=== PATIENT | male | born 1960 | race Caucasian/White ===

== ENCOUNTER 2017-06-23 16:39 | Emergency (ER) | payer BC, OTHER ==
[2017-06-23 17:24] LABS: BILIRUBIN,URINE SMALL (NEG); CLARITY,URINE CLEAR; COLOR,URINE AMBER; GLUCOSE,URINE NEGATIVE (NEG); NITRITE,URINE NEGATIVE (NEG); PROTEIN,URINE >=300 mg/dL (NEG-TRACE); UROBILINOGEN,URINE 0.2 mg/dL (0.2 mg/dL)
[2017-06-23 17:28] LABS: ADD MAN DIFF? NO
[2017-06-23 17:32] LABS: BASO # 0.1 x10^3/uL (0.0-0.2); BASO % 1 % (0-3); EOS % 0 % (0-3); HEMATOCRIT 40.9 % (39.0-53.0); HEMOGLOBIN 14.3 g/dL (13.0-17.5); LYMPH # 1.4 x10^3/uL (1.0-4.8); LYMPH % 14 % (24-48); MEAN CORPUSCULAR HEMOGLOBIN 32 pg (25-35); MEAN CORPUSCULAR HGB CONC 35 g/dL (31-37); MEAN CORPUSCULAR VOLUME 91 fL (79-100); MONO # 0.8 x10^3/uL (0.0-1.1); MONO % 8 % (0-9); NEUT # 7.9 x10^3uL (1.8-7.7); NEUT % 78 % (31-73); PLATELET COUNT 258 x10^3/uL (140-400); RED BLOOD COUNT 4.49 x10^6/uL (4.30-5.70); RED CELL DISTRIBUTION WIDTH 13.9 % (11.5-14.5); WHITE BLOOD COUNT 10.2 x10^3/uL (4.0-11.0)
[2017-06-23 17:39] LABS: BACTERIA,URINE 0 /HPF (0-FEW); HYALINE CASTS, URINE MODERATE /HPF; RBC,URINE 0 /HPF (0-2); WBC,URINE 0 /HPF (0-4)
[2017-06-23] MEDS: fentaNYL PF VIAL 100 MCG/2 ML VIAL IV (17:39)
[2017-06-23] MEDS: IV NORMAL SALINE 1000ML BAG 1,000 ML IV (17:40)
[2017-06-23] MEDS: ONDANSETRON PF 4 MG/2 ML VIAL. IV (17:40)
[2017-06-23 17:50] LABS: ANION GAP 13 (6-14); BLOOD UREA NITROGEN 24 mg/dL (8-26); BUN/CREATININE RATIO 20 (6-20); CALCIUM 8.9 mg/dL (8.5-10.1); CARBON DIOXIDE 23 mmol/L (21-32); CHLORIDE 103 mmol/L (98-107); CREATININE 1.2 mg/dL (0.7-1.3); GFR 62.9; GLUCOSE 178 mg/dL (70-99); POTASSIUM 3.9 mmol/L (3.5-5.1); SODIUM 139 mmol/L (136-145)
[2017-06-23 17:58] LABS: TROPONINI < 0.017 ng/mL (0.000-0.055)
[2017-06-23 17:59] LABS: ALBUMIN 3.8 g/dL (3.4-5.0); ALBUMIN/GLOBULIN RATIO 1.2 (1.0-1.7); ALK PHOS 70 U/L (46-116); ALT (SGPT) 33 U/L (16-63); AST (SGOT) 22 U/L (15-37); LIPASE 185 U/L (73-393); TOTAL BILIRUBIN 0.5 mg/dL (0.2-1.0); TOTAL PROTEIN 7.1 g/dL (6.4-8.2)
[2017-06-23] MEDS ORDERED: CONTRAST GIVEN MC (18:45)
[2017-06-23] MEDS: IOHEXOL 300 MG/ML 100ML VIAL. IV (19:11)
== END 2017-06-23 19:38 | disposition home or self-care (01) ==
LOC: ER 16:39
DX: K80.20 Calculus of gallbladder without cholecystitis without obstruction (principal); K29.00 Acute gastritis without bleeding; E10.9 Type 1 diabetes mellitus without complications; Z79.4 Long term (current) use of insulin
CPT/HCPCS: 36415; 74177; 80053; 81001; 83690; 84484; 85025; 93005; 96361; 96374; 96375; 99285-25; J2405; J3010; J7030; Q9967

== ENCOUNTER 2017-07-06 07:26 | Day surgery (SDC) | payer BC ==
[~2017-07-06 07:26] MED LIST: GLUCAGON,HUMAN RECOMBINANT 1 MG/ML VIAL.; LIDOCAINE 1% PF 2 ML VIAL. ID; MORPHINE SULFATE 2 MG/ML DISP.SYRIN. IV; ONDANSETRON PF 4 MG/2 ML VIAL. IV; SURGICEL HEMOSTAT 4X8 EACH.; fentaNYL PF VIAL 100 MCG/2 ML VIAL IV
[2017-07-06 07:56] LABS: POC GLUCOSE 114 mg/dL (70-99)
[2017-07-06] MEDS ORDERED: SEVOFLURANE 61 TO 120 MINUTES. IH (07:58)
[2017-07-06] MEDS: IV RINGERS,LACTATED 1000ML 1,000 ML IV (07:59)
[2017-07-06] MEDS ORDERED: ROCURONIUM 50 MG/5 ML VIAL. (08:00)
[2017-07-06] MEDS ORDERED: PROPOFOL 20 ML IV (08:00)
[2017-07-06] MEDS ORDERED: GLYCOPYRROLATE 1 MG/5 ML VIAL. (08:00)
[2017-07-06] MEDS ORDERED: MIDAZOLAM HCL/PF 2 MG/2 ML VIAL. (08:00)
[2017-07-06] MEDS ORDERED: fentaNYL PF VIAL 100 MCG/2 ML VIAL ×3 (08:00→10:20)
[2017-07-06] MEDS ORDERED: LIDOCAINE 2% PF Vial for OR 5 ML VIAL. (08:00)
[2017-07-06] MEDS ORDERED: NEOSTIGMINE METHYLSULFATE 5 MG/5 ML SYRINGE. (08:00)
[2017-07-06] MEDS ORDERED: ceFAZolin 2GM PREMIX 2 GM/50 ML BAG IV (08:00)
[2017-07-06] MEDS ORDERED: KETOROLAC 30 MG/ML INJ FOR OR. INJ (08:01)
[2017-07-06] MEDS ORDERED: DEXAMETHASONE SOD PHOS 20 MG/5 ML VIAL. (08:01)
[2017-07-06] MEDS ORDERED: ONDANSETRON PF 4 MG/2 ML VIAL. (08:01)
[2017-07-06] MEDS: BUPIVACAINE-EPI 0.25%-1:200000 50 ML VIAL. (09:05)
[2017-07-06] MEDS: IOHEXOL 300 MG/ML 100ML VIAL. (09:05)
[2017-07-06 10:16] LABS: POC GLUCOSE 170 mg/dL (70-99)
[2017-07-06] MEDS: fentaNYL PF VIAL 100 MCG/2 ML VIAL IV ×2 (10:24→10:46)
[2017-07-06] MEDS ORDERED: PROCHLORPERAZINE 10 MG/2 ML VIAL. (10:45)
[2017-07-06] MEDS: PROCHLORPERAZINE 10 MG/2 ML VIAL. IV (10:55)
[2017-07-06] MEDS: oxyCODONE/APAP 5/325 1 TAB TABLET PO (11:18)
[2017-07-07] MEDS ORDERED: DOCUSATE SODIUM 100 MG CAPSULE. PO (09:00)
== END 2017-07-06 12:35 | disposition home or self-care (01) ==
LOC: SURG 07:26
DX: K80.10 Calculus of gallbladder with chronic cholecystitis without obstruction (principal); E11.9 Type 2 diabetes mellitus without complications; I10 Essential (primary) hypertension; E78.00 Pure hypercholesterolemia, unspecified; E03.9 Hypothyroidism, unspecified; K08.409 Partial loss of teeth, unspecified cause, unspecified class; Z98.890 Other specified postprocedural states; Z80.52 Family history of malignant neoplasm of bladder; Z87.891 Personal history of nicotine dependence; M19.90 Unspecified osteoarthritis, unspecified site; Z79.84 Long term (current) use of oral hypoglycemic drugs; Z79.899 Other long term (current) drug therapy
CPT/HCPCS: 47562; 82962; 88304; A7015; J0690; J0780; J1100; J1610; J1885; J2250; J2405; J2704; J2710; J3010; J3490; J7030; J7120; Q9967

== ENCOUNTER 2018-07-20 05:31 | Inpatient (IN) | payer BC ==
[~2018-07-20] VITALS: Ht 188 cm; Wt 98.0 kg
[~2018-07-20 05:31] MED LIST changes: +GABA300C18 PO; -GLUCAGON,HUMAN RECOMBINANT 1 MG/ML VIAL.; +INSU100V SQ; +INSU100V13 SQ; +LEVO125T5 PO; -LIDOCAINE 1% PF 2 ML VIAL. ID; +LISI-338 PO; +LOVA10TA PO; -MORPHINE SULFATE 2 MG/ML DISP.SYRIN. IV; +OMEP20TA63 PO; +ONDA4TAB10 PO; -ONDANSETRON PF 4 MG/2 ML VIAL. IV; +OXYC1TAB15 PO; -SURGICEL HEMOSTAT 4X8 EACH.; -fentaNYL PF VIAL 100 MCG/2 ML VIAL IV; +insulin
[2018-07-20] MEDS ORDERED: ONDANSETRON PF 4 MG/2 ML VIAL. IV ONE ×2 (06:15→06:30)
[2018-07-20] MEDS ORDERED: IV NORMAL SALINE 1000ML BAG 1,000 ML IV SCH ×2 (06:15→09:08)
[2018-07-20 06:23] LABS: BASO % 0 % (0-3); EOS % 0 % (0-3); HEMOGLOBIN 15.2 g/dL (13.0-17.5); LYMPH # 2.2 x10^3/uL (1.0-4.8); LYMPH % 18 % (24-48); MEAN CORPUSCULAR HEMOGLOBIN 33 pg (25-35); MEAN CORPUSCULAR HGB CONC 35 g/dL (31-37); MEAN CORPUSCULAR VOLUME 94 fL (79-100); MONO # 1.3 x10^3/uL (0.0-1.1); MONO % 11 % (0-9); NEUT # 8.2 x10^3uL (1.8-7.7); NEUT % 70 % (31-73); PLATELET COUNT 271 x10^3/uL (140-400); RED BLOOD COUNT 4.58 x10^6/uL (4.30-5.70); RED CELL DISTRIBUTION WIDTH 13.2 % (11.5-14.5); WHITE BLOOD COUNT 11.7 x10^3/uL (4.0-11.0)
[2018-07-20 06:28] LABS: CALCIUM 9.4 mg/dL (8.5-10.1); CREATININE 1.6 mg/dL (0.7-1.3); GFR 44.9; POTASSIUM 3.7 mmol/L (3.5-5.1)
[2018-07-20 06:32] LABS: ALBUMIN 4.7 g/dL (3.4-5.0); ALBUMIN/GLOBULIN RATIO 1.3 (1.0-1.7); TOTAL BILIRUBIN 0.7 mg/dL (0.2-1.0); TOTAL PROTEIN 8.3 g/dL (6.4-8.2)
[2018-07-20 06:52] LABS: PROTHROMBIN TIME PATIENT 13.4 SEC (11.7-14.0)
[2018-07-20 07:08] LABS: BILIRUBIN,URINE SMALL (NEG); CLARITY,URINE CLEAR; COLOR,URINE YELLOW; NITRITE,URINE NEGATIVE (NEG); PROTEIN,URINE >=300 mg/dL (NEG-TRACE)
[2018-07-20] MEDS ORDERED: CONTRAST GIVEN. MC PRN (07:15)
[2018-07-20] MEDS ORDERED: IOHEXOL 240 MG/ML 50ML VIAL. PO ONE (07:15)
[2018-07-20 07:24] LABS: HYALINE CASTS, URINE MODERATE /HPF
[2018-07-20 07:25] LABS: BACTERIA,URINE FEW /HPF (0-FEW); RBC,URINE RARE /HPF (0-2); WBC,URINE OCC /HPF (0-4)
--- NOTE | 2018-07-20 07:31 | PHYS DOC ---
Past Medical History Past Medical History: Diabetes-Type I Past Surgical History: Cholecystectomy Additional Past Surgical Histo: scrotal sx Alcohol Use: None Drug Use: None Adult General Chief Complaint Chief Complaint: ABDOMINAL PAIN HPI HPI Patient is a 58 year old MALE presented to the ER today for evaluation of lower abdominal pain, nausea, vomiting for the last two days, not able to keep anything down. NO diarrhea, no fever. No recent sick contact. HE denies any chest pain or any trouble breathing. Last bowel movement was Thursday. Review of Systems Review of Systems Constitutional: Denies fever or chills [] Eyes: Denies change in visual acuity, redness, or eye pain [] HENT: Denies nasal congestion or sore throat [] Respiratory: Denies cough or shortness of breath [] Cardiovascular: No additional information not addressed in HPI [] GI: Positive abdominal pain, nausea, vomiting NO bloody stools or diarrhea [] : Denies dysuria or hematuria [] Musculoskeletal: Denies back pain or joint pain [] Integument: Denies rash or skin lesions [] Neurologic: Denies headache, focal weakness or sensory changes [] Endocrine: Denies polyuria or polydipsia [] All other systems were reviewed and found to be within normal limits, except as documented in this note. Current Medications Current Medications Current Medications Medications (Trade) Dose Ordered Sig/Babar Start Time Stop Time Status Last Admin Dose Admin Info (CONTRAST GIVEN -- Rx MONITORING) 1 each PRN DAILY PRN 07/20/18 07:15 07/22/18 07:14 Iohexol (Omnipaque 240 Mg/ml) 50 ml 1X ONCE 07/20/18 07:15 07/20/18 07:16 DC Ondansetron HCl (Zofran) 8 mg 1X ONCE 07/20/18 06:30 07/20/18 06:31 DC 07/20/18 06:26 8 MG Sodium Chloride 1,000 ml @ 1,000 mls/hr Q1H 07/20/18 06:15 07/20/18 07:14 DC 07/20/18 06:26 1,000 MLS/HR Allergies Allergies Allergies Coded Allergies Type Severity Reaction Last Updated Verified No Known Drug Allergies 07/06/17 No Physical Exam Physical Exam Constitutional: Well developed, well nourished, no acute distress, non-toxic appearance. [] HENT: Normocephalic, atraumatic, bilateral external ears normal, oropharynx moist, no oral exudates, nose normal. [] Eyes: PERRLA, EOMI, conjunctiva normal, no discharge. [] Neck: Normal range of motion, no tenderness, supple, no stridor. [] Cardiovascular:Heart rate regular rhythm, no murmur [] Lungs & Thorax: Bilateral breath sounds clear to auscultation [] Abdomen: Bowel sounds normal, soft, tenderness to palpation in lower abdominal area, no masses, no pulsatile masses. [] Skin: Warm, dry, no erythema, no rash. [] Back: No tenderness, no CVA tenderness. [] Extremities: No tenderness, no cyanosis, no clubbing, ROM intact, no edema. [] Neurologic: Alert and oriented X 3, normal motor function, normal sensory function, no focal deficits noted. [] Psychologic: Affect normal, judgement normal, mood normal. [] Current Patient Data Vital Signs Vital Signs Date Time Temp Pulse Resp B/P (MAP) Pulse Ox O2 Delivery O2 Flow Rate FiO2 07/20/18 05:45 98.1 89 18 154/87 (109) 100 Room Air 98.1 Lab Values Laboratory Tests Test 07/20/18 05:35 07/20/18 06:35 White Blood Count 11.7 x10^3/uL (4.0-11.0) H Red Blood Count 4.58 x10^6/uL (4.30-5.70) Hemoglobin 15.2 g/dL (13.0-17.5) Hematocrit 43.0 % (39.0-53.0) Mean Corpuscular Volume 94 fL (79-100) Mean Corpuscular Hemoglobin 33 pg (25-35) Mean Corpuscular Hemoglobin Concent 35 g/dL (31-37) Red Cell Distribution Width 13.2 % (11.5-14.5) Platelet Count 271 x10^3/uL (140-400) Neutrophils (%) (Auto) 70 % (31-73) Lymphocytes (%) (Auto) 18 % (24-48) L Monocytes (%) (Auto) 11 % (0-9) H Eosinophils (%) (Auto) 0 % (0-3) Basophils (%) (Auto) 0 % (0-3) Neutrophils # (Auto) 8.2 x10^3uL (1.8-7.7) H Lymphocytes # (Auto) 2.2 x10^3/uL (1.0-4.8) Monocytes # (Auto) 1.3 x10^3/uL (0.0-1.1) H Eosinophils # (Auto) 0.0 x10^3/uL (0.0-0.7) Basophils # (Auto) 0.0 x10^3/uL (0.0-0.2) Prothrombin Time 13.4 SEC (11.7-14.0) Prothrombin Time INR 1.1 (0.8-1.1) PTT 32 SEC (24-38) Sodium Level 137 mmol/L (136-145) Potassium Level 3.7 mmol/L (3.5-5.1) Chloride Level 99 mmol/L (98-107) Carbon Dioxide Level 24 mmol/L (21-32) Anion Gap 14 (6-14) Blood Urea Nitrogen 37 mg/dL (8-26) H Creatinine 1.6 mg/dL (0.7-1.3) H Estimated GFR (Cockcroft-Gault) 44.9 BUN/Creatinine Ratio 23 (6-20) H Glucose Level 196 mg/dL (70-99) H Calcium Level 9.4 mg/dL (8.5-10.1) Total Bilirubin 0.7 mg/dL (0.2-1.0) Aspartate Amino Transferase (AST) 31 U/L (15-37) Alanine Aminotransferase (ALT) 32 U/L (16-63) Alkaline Phosphatase 79 U/L (46-116) Total Protein 8.3 g/dL (6.4-8.2) H Albumin 4.7 g/dL (3.4-5.0) Albumin/Globulin Ratio 1.3 (1.0-1.7) Lipase 235 U/L (73-393) Urine Collection Type Unknown Urine Color Yellow Urine Clarity Clear Urine pH 5.0 Urine Specific [place] >=1.030 Urine Protein >=300 mg/dL (NEG-TRACE) Urine Glucose (UA) Negative mg/dL (NEG) Urine Ketones (Stick) 40 mg/dL (NEG) Urine Blood Small (NEG) Urine Nitrite Negative (NEG) Urine Bilirubin Small (NEG) Urine Urobilinogen Dipstick 1.0 mg/dL (0.2 mg/dL) Urine Leukocyte Esterase Negative (NEG) Urine RBC Rare /HPF (0-2) Urine WBC Occ /HPF (0-4) Urine Bacteria Few /HPF (0-FEW) Urine Hyaline Casts Moderate /HPF Urine Mucus Marked /LPF Laboratory Tests 07/20/18 05:35 Laboratory Tests 07/20/18 05:35 EKG EKG [] Radiology/Procedures Radiology/Procedures CT SCAN OF ABDOMEN AND PELVIC SHOWN PARTIAL SMALL BOWEL OBSTRUCTION. Course & Med Decision Making Course & Med Decision Making Pertinent Labs and Imaging studies reviewed. (See chart for details) [] Dragon Disclaimer Dragon Disclaimer This electronic medical record was generated, in whole or in part, using a voice recognition dictation system. Departure Departure Impression: Primary Impression: Small bowel obstruction Disposition: ADMITTED INPATIENT Admitting Physician: Singh Lynn Condition: STABLE Referrals: SINGH LYNN MD (PCP) DREW CHEN DO July 20, 2018 07:30
[2018-07-20] MEDS ORDERED: ONDANSETRON PF 4 MG/2 ML VIAL. IV PRN ×2 (09:15→10:45)
[2018-07-20] MEDS ORDERED: BENZOCAINE ONE 20% MUCOSAL SPRAY. MM (09:45)
--- NOTE | 2018-07-20 09:50 | RAD ---
CT abdomen and pelvis without contrast PQRS statement: CT scans at this facility use dose reduction including either automated exposure control, iterative reconstructions, and /or weight based radiation dosing via mA and kV modification when appropriate to reduce radiation dose to as low as reasonably achievable. COMPARISON: CT abdomen and pelvis 10/23/2017. HISTORY: Lower abdominal pain, nausea and vomiting. TECHNIQUE: Helical noncontrast CT imaging abdomen and pelvis was acquired. Abdomen findings: Left lower lobe 4 mm pulmonary nodule is stable. Cholecystectomy. Liver, spleen, right adrenal and pancreas are unremarkable. Nodularity of the left adrenal is stable density of 5 units typical of an adenoma. Mild bilateral perinephric stranding stable. No renal or ureteral calculi or hydronephrosis. Lower abdominal aortic calcified plaque iliac artery calcified plaque. There is somewhat greater distention with some air-fluid levels of the duodenum and proximal jejunum at the upper abdomen relatively more distal small bowel in the mid to lower abdomen the prior exam the proximal small bowel diameter 3.2 cm whereas the distal small bowel diameter average is 1.3 cm, no focal transition point is evident, this may represent a mild proximal enteritis with low-grade regional ileus or a low-grade small bowel obstruction. The appendix is negative. No abdominal fluid. Pelvis findings: No bladder calculi. Pelvic phleboliths. Prostate, rectum and bones are unremarkable. IMPRESSION: 1. Mild distention with air-fluid levels of the duodenum and proximal jejunum disproportionate to the more distal small bowel could represent regional proximal enteritis with mild ileus, or low-grade small bowel obstruction. 2. The appendix is negative. 3. 4 mm left lower lobe pulmonary nodule is stable to prior exam. Electronically signed by: Jarred May MD (07/20/2018 7:37 AM) [id number]
--- NOTE | 2018-07-20 10:33 | PDOC ---
Provider Note Provider Note history and physical dictated # [id number] KIMI DILLARD MD July 20, 2018 10:33
[2018-07-20 10:45] VITALS: BP 169/87
[2018-07-20] MEDS ORDERED: ACETAMINOPHEN 650 MG SUPP.RECT. PR PRN (10:45)
--- NOTE | 2018-07-20 10:46 | RAD ---
KUB History: NG tube placement Comparison: Exam earlier the same day Findings: AP view centered upon the superior abdomen and inferior chest is submitted. Tip of enteric catheter now terminates in the region of stomach. There is some gas distention of stomach. Impression: 1. Tip of the enteric catheter terminates in the stomach. Electronically signed by: Akin Alejandro MD (07/20/2018 10:43 AM) [id number]
--- NOTE | 2018-07-20 10:47 | RAD ---
KUB History: NG tube placement Comparison: CT earlier the same day Findings: AP view centered upon the inferior chest and superior abdomen is submitted. There is enteric catheter although the tip in the distal esophagus. Impression: 1. Tip of the enteric catheter terminates in distal esophagus. Catheter has already been advanced since time of image acquisition and interpretation of this exam. Electronically signed by: Akin Alejandro MD (07/20/2018 10:44 AM) [id number]
--- NOTE | 2018-07-20 11:13 | HP ---
ADMIT DATE: 07/20/2018 LOCATION: He is in room 400. HISTORY OF PRESENT ILLNESS: The patient is a 58-year-old white male who notes a two-day history of nausea and vomiting and some intermittent abdominal cramps. He was visiting his friend in [place] and said he did not eat any tainted food or chicken. His friend did not have any similar symptoms. Last bowel movement was also a couple of days ago on Thursday. Denies any hematemesis or any blood in his stool. Otherwise, his travel history is also negative and has not been on any recent antibiotics. He does have a history of diabetes mellitus and does take insulin. He says his blood sugar today was 142. He was seen in the Emergency Room and had a CAT scan of his abdomen and pelvis, which showed mild distention, air fluid levels in the duodenum and proximal jejunum, which could be secondary to a low-grade small-bowel obstruction versus an ileus, mild ileus. He was subsequently admitted to the hospital for further evaluation and treatment. ALLERGIES: None. MEDICATIONS: He is on gabapentin 300 mg t.i.d., Levemir insulin 15 units at bedtime, Humalog insulin 8 units before meals t.i.d., levothyroxine 125 mcg every day, lisinopril 5 mg every day, lovastatin 10 mg at bedtime. PAST MEDICAL HISTORY: Significant for diabetes mellitus, hypertension, benign prostatic hypertrophy and hypothyroidism. He has had Sandra gangrene in 2012. SOCIAL HISTORY: He does not drink alcohol nor does he smoke cigarettes. He is . FAMILY HISTORY: Not contributory. REVIEW OF SYSTEMS: GENERAL: He denies any fever, chills or sweats. CARDIOVASCULAR: No chest pain. PULMONARY: No cough. GASTROINTESTINAL: No nausea, vomiting, abdominal cramps. ENDOCRINE: He has diabetes mellitus. SKIN: No rashes. The rest of systems reviewed and negative except as stated in history of present illness. PHYSICAL EXAMINATION: VITAL SIGNS: Temperature 98.1 degrees, apical pulse regular at 76, respiratory rate 20, blood pressure 134/69, oxygen saturation 100% on room air. HEENT: Eyes: Gaze is conjugate. Mouth: Tongue is midline. NECK: No cervical lymphadenopathy or thyroid enlargement. HEART: Reveals an S1, S2. There is no S3 or murmur. LUNGS: Clear. ABDOMEN: Bowel sounds are positive. It is not distended. It is nontender. No hepatosplenomegaly or masses. EXTREMITIES: Lower extremities without edema. SKIN: No rashes. NEUROLOGIC: Revealed no focal weakness of the extremities or facial asymmetry. LABORATORY DATA: White count 11.7, hemoglobin 15.2 with a platelet count 271,000, 70 polys and 18 lymphocytes. INR 1.1 with PTT of 32. Sodium 137, potassium 3.7, chloride 99, total CO2 was 24, the BUN 37, creatinine 1.6, blood sugar is 196. Liver function tests were normal with an albumin at 4.7, lipase was 235. Urinalysis showed an occasional white cell, rare red blood cell and greater than 300 mg of protein in his urine. He had a CAT scan of his abdomen and pelvis done, which showed mild distention with air fluid levels of the duodenum and proximal jejunum out of proportion for the distal small bowel, compared to the distal small bowel, which could represent a low-grade small-bowel obstruction versus a localized ileus. Appendix was negative. He had a 4-mm left lower lobe nodule, stable compared to the prior examination on 10/23/2017. I do not see an EKG. ASSESSMENT: 1. Partial small-bowel obstruction versus an ileus. 3. Possible gastroenteritis with nausea and vomiting. 4. Diabetes mellitus type 2. 5. Hypothyroidism. 6. Mild leukocytosis. PLAN: At this time, he is admitted to the hospital. We will consult Dr. Brown for General Surgery, make him n.p.o., start him on IV fluids and a nasogastric tube will be placed to continuous suction. Repeat his labs tomorrow and actually acute abdominal series tomorrow. We will put him on Humalog insulin sliding scale since he will not be eating. KIMI DILLARD MD DR: TANYA/stacie JOB#: [id number] / [id number]
[2018-07-20] MEDS: INSULIN LISPRO 300 UNITS/3 ML INSULN.PEN. SQ SCH ×2 (11:34→17:28)
--- NOTE | 2018-07-20 11:38 | EKG ---
[facility] [address] [place] [address] Test Date: 2018-07-20 Test Time: 11:30:12 Pat Name: TOSHIA CAROLINA Department: Room: 400 1 Gender: M Acute Care Assistant: ZACK : [id number] Requested By: KIMI DILLARD Order Number: [id number] Reading MD: Measurements Intervals [place] Rate: 66 P: 62 IN: 178 QRS: 20 QRSD: 78 T: 41 QT: 388 QTc: 408 Interpretive Statements SINUS RHYTHM NORMAL ECG RI6.01 Compared to ECG 06/23/2017 17:20:08 No significant changes
[2018-07-20] MEDS: PANTOPRAZOLE IV PUSH 40 MG VIAL. IVP SCH (11:42)
[2018-07-20] MEDS: POTASSIUM CL 20MEQ-0.45% NACL 1,000 ML IV SCH ×2 (11:43→21:51)
--- NOTE | 2018-07-20 11:56 | PDOC2 ---
BEN CHEN INFORMATION TECHNOLOGY AUDIT MANAGER 07/20/18 1156: CONSULT Date of Consult Date of Consult DATE: 07/20/18 TIME: 11:50 Reason for Consult Reason for Consult: sbo Referring Physician Referring Physician: ER Identification/Chief Complaint Chief Complaint abdominal pain Source Source: Chart review, Patient History of Present Illness Reason for Visit: Reports Thursday did not feel well. Thursday developed abdominal pain, nausea, emesis. He did report some loose stools on Thursday. No stools since then. Does report + flatus today. No history of sbo. Only surgery lap yash last June Past Medical History Cardiovascular: HTN, Hyperlipidemia Endocrine: Diabetes Past Surgical History Past Surgical History: Cholecystectomy Family History Family History: Diabetes Social History No ALCOHOL: none Drugs: None Lives: with Family Current Problem List Problem List Problems Medical Problems: (1) Small bowel obstruction Status: Acute Current Medications Current Medications Current Medications Ondansetron HCl (Zofran) 4 mg 1X ONCE IV ; Start 07/20/18 at 06:15; Stop 07/20/18 at 06:34; Status DC Sodium Chloride 1,000 ml @ 1,000 mls/hr Q1H IV Last administered on 07/20/18at 06:26; Start 07/20/18 at 06:15; Stop 07/20/18 at 07:14; Status DC Ondansetron HCl (Zofran) 8 mg 1X ONCE IV Last administered on 07/20/18at 06:26; Start 07/20/18 at 06:30; Stop 07/20/18 at 06:31; Status DC Iohexol (Omnipaque 240 Mg/ml) 50 ml 1X ONCE PO ; Start 07/20/18 at 07:15; Stop 07/20/18 at 07:16; Status DC Info (CONTRAST GIVEN -- Rx MONITORING) 1 each PRN DAILY PRN MC SEE COMMENTS; Start 07/20/18 at 07:15; Stop 07/22/18 at 07:14 Ondansetron HCl (Zofran) 4 mg PRN Q8HRS PRN IV NAUSEA/VOMITING; Start 07/20/18 at 09:15; Stop 07/20/18 at 10:43; Status DC Sodium Chloride 1,000 ml @ 100 mls/hr Q10H IV ; Start 07/20/18 at 09:08; Stop 07/20/18 at 10:43; Status DC Benzocaine (Hurricaine One) 1 spray 1X ONCE MM Last administered on 07/20/18at 10:05; Start 07/20/18 at 09:45; Stop 07/20/18 at 09:46; Status DC Insulin Human Lispro (HumaLOG) 0-6 UNITS BG 300-39... Q6HRS SQ ; Start 07/20/18 at 12:00 Ondansetron HCl (Zofran) 4 mg PRN Q6HRS PRN IV NAUSEA/VOMITING; Start 07/20/18 at 10:45 Potassium Chloride/Sodium Chloride 1,000 ml @ 125 mls/hr Q8H IV Last administered on 07/20/18at 11:43; Start 07/20/18 at 10:45 Pantoprazole Sodium (PROTONIX VIAL for IV PUSH) 40 mg DAILYAC IVP Last administered on 07/20/18at 11:42; Start 07/20/18 at 11:00 Acetaminophen (Tylenol Supp) 650 mg PRN Q6HRS PRN MA MILD PAIN / TEMP; Start 07/20/18 at 10:45 Active Scripts Active Percocet 5-325 Mg Tablet (Oxycodone/Acetaminophen) 1 Each Tablet 1 Tab PO PRN Q6HRS PRN Reported Percocet 5-325 Mg Tablet (Oxycodone/Acetaminophen) 1 Each Tablet 1 Tab PO PRN Q4HRS PRN Lovastatin 10 Mg Tablet 10 Mg PO HS Lisinopril 5 Mg Tablet 5 Mg PO DAILY Levothyroxine Sodium 125 Mcg Tablet 125 Mcg PO DAILYAC Gabapentin (Gabapentin) 300 Mg Capsule 300 Mg PO TID Levemir (Insulin Detemir) 100 Unit/1 Ml Vial 15 Unit SQ HS Humalog (Insulin Lispro) 100 Unit/1 Ml Vial 8 Unit SQ TIDBFRMEAL Allergies Allergies: Coded Allergies: No Known Drug Allergies (Unverified , 07/06/17) ROS General: No: Chills, Other (fevers) PSYCHOLOGICAL ROS: No: Anxiety, Depression Eyes: No Blurry vision, No Double vision HEENT: No: Heacaches, Sore Throat Hematological and Lymphatic: No: Bleeding Problems, Blood Clots Respiratory: No: Cough, Shortness of breath Cardiovascular: No Chest Pain, No Palpitations Gastrointestinal: Yes Other (see hpi) Musculoskeletal: No Joint Pain, No Muscle Pain Neurological: No Confusion, No Numbness/Tingling Skin: No Pruritus, No Rash Physical Exam General: Alert, Oriented X3, Cooperative, No acute distress HEENT: PERRLA, Mucous membr. moist/pink, Other (NG in place) Lungs: Clear to auscultation, Normal air movement Heart: Regular rate, Normal S1, Normal S2, No murmurs Abdomen: Soft, Other (ND, mild TTP mid abdomen ) Extremities: No clubbing, No cyanosis Skin: No rashes, No breakdown Neuro: Normal gait, Normal speech Psych/Mental Status: Mental status NL, Mood NL MUSCULOSKELETAL: No deformity, No swelling Vitals VITALS Vital Signs Date Time Temp Pulse Resp B/P (MAP) Pulse Ox O2 Delivery O2 Flow Rate FiO2 07/20/18 08:55 76 20 134/69 (90) 100 Room Air 07/20/18 05:45 98.1 98.1 Labs Labs Laboratory Tests Test 07/20/18 05:35 07/20/18 06:35 07/20/18 10:49 White Blood Count 11.7 x10^3/uL (4.0-11.0) Red Blood Count 4.58 x10^6/uL (4.30-5.70) Hemoglobin 15.2 g/dL (13.0-17.5) Hematocrit 43.0 % (39.0-53.0) Mean Corpuscular Volume 94 fL (79-100) Mean Corpuscular Hemoglobin 33 pg (25-35) Mean Corpuscular Hemoglobin Concent 35 g/dL (31-37) Red Cell Distribution Width 13.2 % (11.5-14.5) Platelet Count 271 x10^3/uL (140-400) Neutrophils (%) (Auto) 70 % (31-73) Lymphocytes (%) (Auto) 18 % (24-48) Monocytes (%) (Auto) 11 % (0-9) Eosinophils (%) (Auto) 0 % (0-3) Basophils (%) (Auto) 0 % (0-3) Neutrophils # (Auto) 8.2 x10^3uL (1.8-7.7) Lymphocytes # (Auto) 2.2 x10^3/uL (1.0-4.8) Monocytes # (Auto) 1.3 x10^3/uL (0.0-1.1) Eosinophils # (Auto) 0.0 x10^3/uL (0.0-0.7) Basophils # (Auto) 0.0 x10^3/uL (0.0-0.2) Prothrombin Time 13.4 SEC (11.7-14.0) Prothromb Time International Ratio 1.1 (0.8-1.1) Activated Partial Thromboplast Time 32 SEC (24-38) Sodium Level 137 mmol/L (136-145) Potassium Level 3.7 mmol/L (3.5-5.1) Chloride Level 99 mmol/L (98-107) Carbon Dioxide Level 24 mmol/L (21-32) Anion Gap 14 (6-14) Blood Urea Nitrogen 37 mg/dL (8-26) Creatinine 1.6 mg/dL (0.7-1.3) Estimated GFR (Cockcroft-Gault) 44.9 BUN/Creatinine Ratio 23 (6-20) Glucose Level 196 mg/dL (70-99) Calcium Level 9.4 mg/dL (8.5-10.1) Total Bilirubin 0.7 mg/dL (0.2-1.0) Aspartate Amino Transf (AST/SGOT) 31 U/L (15-37) Alanine Aminotransferase (ALT/SGPT) 32 U/L (16-63) Alkaline Phosphatase 79 U/L (46-116) Total Protein 8.3 g/dL (6.4-8.2) Albumin 4.7 g/dL (3.4-5.0) Albumin/Globulin Ratio 1.3 (1.0-1.7) Lipase 235 U/L (73-393) Urine Collection Type Unknown Urine Color Yellow Urine Clarity Clear Urine pH 5.0 Urine Specific [place] >=1.030 Urine Protein >=300 mg/dL (NEG-TRACE) Urine Glucose (UA) Negative mg/dL (NEG) Urine Ketones (Stick) 40 mg/dL (NEG) Urine Blood Small (NEG) Urine Nitrite Negative (NEG) Urine Bilirubin Small (NEG) Urine Urobilinogen Dipstick 1.0 mg/dL (0.2 mg/dL) Urine Leukocyte Esterase Negative (NEG) Urine RBC Rare /HPF (0-2) Urine WBC Occ /HPF (0-4) Urine Bacteria Few /HPF (0-FEW) Urine Hyaline Casts Moderate /HPF Urine Mucus Marked /LPF Glucose (Fingerstick) 157 mg/dL (70-99) Laboratory Tests Test 07/20/18 05:35 07/20/18 06:35 07/20/18 10:49 White Blood Count 11.7 x10^3/uL (4.0-11.0) Red Blood Count 4.58 x10^6/uL (4.30-5.70) Hemoglobin 15.2 g/dL (13.0-17.5) Hematocrit 43.0 % (39.0-53.0) Mean Corpuscular Volume 94 fL (79-100) Mean Corpuscular Hemoglobin 33 pg (25-35) Mean Corpuscular Hemoglobin Concent 35 g/dL (31-37) Red Cell Distribution Width 13.2 % (11.5-14.5) Platelet Count 271 x10^3/uL (140-400) Neutrophils (%) (Auto) 70 % (31-73) Lymphocytes (%) (Auto) 18 % (24-48) Monocytes (%) (Auto) 11 % (0-9) Eosinophils (%) (Auto) 0 % (0-3) Basophils (%) (Auto) 0 % (0-3) Neutrophils # (Auto) 8.2 x10^3uL (1.8-7.7) Lymphocytes # (Auto) 2.2 x10^3/uL (1.0-4.8) Monocytes # (Auto) 1.3 x10^3/uL (0.0-1.1) Eosinophils # (Auto) 0.0 x10^3/uL (0.0-0.7) Basophils # (Auto) 0.0 x10^3/uL (0.0-0.2) Prothrombin Time 13.4 SEC (11.7-14.0) Prothromb Time International Ratio 1.1 (0.8-1.1) Activated Partial Thromboplast Time 32 SEC (24-38) Sodium Level 137 mmol/L (136-145) Potassium Level 3.7 mmol/L (3.5-5.1) Chloride Level 99 mmol/L (98-107) Carbon Dioxide Level 24 mmol/L (21-32) Anion Gap 14 (6-14) Blood Urea Nitrogen 37 mg/dL (8-26) Creatinine 1.6 mg/dL (0.7-1.3) Estimated GFR (Cockcroft-Gault) 44.9 BUN/Creatinine Ratio 23 (6-20) Glucose Level 196 mg/dL (70-99) Calcium Level 9.4 mg/dL (8.5-10.1) Total Bilirubin 0.7 mg/dL (0.2-1.0) Aspartate Amino Transf (AST/SGOT) 31 U/L (15-37) Alanine Aminotransferase (ALT/SGPT) 32 U/L (16-63) Alkaline Phosphatase 79 U/L (46-116) Total Protein 8.3 g/dL (6.4-8.2) Albumin 4.7 g/dL (3.4-5.0) Albumin/Globulin Ratio 1.3 (1.0-1.7) Lipase 235 U/L (73-393) Urine Collection Type Unknown Urine Color Yellow Urine Clarity Clear Urine pH 5.0 Urine Specific [place] >=1.030 Urine Protein >=300 mg/dL (NEG-TRACE) Urine Glucose (UA) Negative mg/dL (NEG) Urine Ketones (Stick) 40 mg/dL (NEG) Urine Blood Small (NEG) Urine Nitrite Negative (NEG) Urine Bilirubin Small (NEG) Urine Urobilinogen Dipstick 1.0 mg/dL (0.2 mg/dL) Urine Leukocyte Esterase Negative (NEG) Urine RBC Rare /HPF (0-2) Urine WBC Occ /HPF (0-4) Urine Bacteria Few /HPF (0-FEW) Urine Hyaline Casts Moderate /HPF Urine Mucus Marked /LPF Glucose (Fingerstick) 157 mg/dL (70-99) Assessment/Plan Assessment/Plan SBO vs ileus bowel rest, hydration, NG, recheck abdominal films in AM STELLA PETIT MD 07/20/18 1502: CONSULT Assessment/Plan Assessment/Plan pt seen, interviewed and examined has a small caliber NG tube in feels "a little better" will recheck plain films in the AM hopefully can resolve without surgical intervention will follow thanks for consult BEN CHEN APRN July 20, 2018 11:56 STELLA PETIT MD July 20, 2018 15:02
--- NOTE | 2018-07-20 13:32 | RAD ---
CHEST AP ONLY History: Possible partial bowel obstruction, epigastric pain Comparison: None. Findings: Single view of the chest is submitted. There is enteric catheter coursing into the stomach, poorly visualized distally. Heart size is within normal limits. There is no lobar consolidation, pleural fluid, pneumothorax. Impression: 1. There is no radiographic evidence of acute cardiopulmonary disease. Electronically signed by: Akin Alejandro MD (07/20/2018 1:29 PM) [id number]
[2018-07-20 15:00] VITALS: BP 142/70
[2018-07-20 19:00] VITALS: BP 145/76
[2018-07-20] MEDS ORDERED: PHENOL ORAL SPRAY 177ML BOTTLE. PO PRN (22:00)
[2018-07-20] MEDS ORDERED: MORPHINE SULFATE 2 MG/ML VIAL. IV PRN ×2 (22:00)
[2018-07-20] MEDS ORDERED: diphenhydrAMINE 50 MG/ML VIAL IVP PRN (22:00)
[2018-07-20 23:00] VITALS: BP 137/73
[2018-07-21] MEDS: POTASSIUM CL 20MEQ-0.45% NACL 1,000 ML IV SCH ×3 (02:57→23:40)
[2018-07-21 03:00] VITALS: BP 130/76
[2018-07-21 05:32] LABS: BASO % 0 % (0-3); EOS # 0.1 x10^3/uL (0.0-0.7); EOS % 1 % (0-3); HEMATOCRIT 38.6 % (39.0-53.0); HEMOGLOBIN 13.1 g/dL (13.0-17.5); LYMPH # 2.1 x10^3/uL (1.0-4.8); LYMPH % 16 % (24-48); MEAN CORPUSCULAR HEMOGLOBIN 32 pg (25-35); MEAN CORPUSCULAR HGB CONC 34 g/dL (31-37); MEAN CORPUSCULAR VOLUME 95 fL (79-100); MONO # 1.5 x10^3/uL (0.0-1.1); MONO % 11 % (0-9); NEUT # 9.9 x10^3uL (1.8-7.7); NEUT % 72 % (31-73); PLATELET COUNT 234 x10^3/uL (140-400); RED BLOOD COUNT 4.06 x10^6/uL (4.30-5.70); RED CELL DISTRIBUTION WIDTH 13.3 % (11.5-14.5); WHITE BLOOD COUNT 13.7 x10^3/uL (4.0-11.0)
[2018-07-21 05:40] LABS: CALCIUM 8.3 mg/dL (8.5-10.1); CREATININE 1.2 mg/dL (0.7-1.3); GFR 62.6; POTASSIUM 4.1 mmol/L (3.5-5.1)
[2018-07-21] MEDS: INSULIN LISPRO 300 UNITS/3 ML INSULN.PEN. SQ SCH ×4 (06:00→17:59)
[2018-07-21 07:15] VITALS: BP 147/75
[2018-07-21] MEDS: PANTOPRAZOLE IV PUSH 40 MG VIAL. IVP SCH (08:00)
--- NOTE | 2018-07-21 08:42 | RAD ---
Acute abdomen series with chest, 3 views, 07/21/2018: HISTORY: Possible partial small bowel obstruction Gas is present in large and small bowel in a nonspecific pattern. There is only borderline prominence of a gas-filled small bowel loop in the right midabdomen. No free air seen in the abdomen. There is no evidence organomegaly. Surgical clips are present right upper quadrant. Lower pelvic calcifications are compatible phleboliths. The heart size is normal. The lungs are clear. There is no evidence of pleural fluid. IMPRESSION: No radiographic evidence of significant bowel obstruction. Electronically signed by: Nickolas Arredondo MD (07/21/2018 8:38 AM) [facility]
--- NOTE | 2018-07-21 09:31 | PDOC ---
SURGICAL PROGRESS NOTE Subjective feels better less pain had a stool this AM Vital Signs Vital Signs Date Time Temp Pulse Resp B/P (MAP) Pulse Ox O2 Delivery O2 Flow Rate FiO2 07/21/18 08:00 Room Air 07/21/18 07:15 98.1 67 18 147/75 (99) 98 98.1 I&O Intake and Output 07/21/18 07:00 Intake Total 1200 ml Output Total 850 ml Balance 350 ml Intake Oral 200 ml IV Total 1000 ml Output Urine Total 550 ml Gastric Drainage Total 300 ml PATIENT HAS A MONGE: No General: Alert, No acute distress HEENT: Other (NG in place) Abdomen: Soft Labs Laboratory Tests Test 07/20/18 05:35 07/20/18 06:35 07/20/18 10:49 07/20/18 16:52 White Blood Count 11.7 x10^3/uL (4.0-11.0) Red Blood Count 4.58 x10^6/uL (4.30-5.70) Hemoglobin 15.2 g/dL (13.0-17.5) Hematocrit 43.0 % (39.0-53.0) Mean Corpuscular Volume 94 fL (79-100) Mean Corpuscular Hemoglobin 33 pg (25-35) Mean Corpuscular Hemoglobin Concent 35 g/dL (31-37) Red Cell Distribution Width 13.2 % (11.5-14.5) Platelet Count 271 x10^3/uL (140-400) Neutrophils (%) (Auto) 70 % (31-73) Lymphocytes (%) (Auto) 18 % (24-48) Monocytes (%) (Auto) 11 % (0-9) Eosinophils (%) (Auto) 0 % (0-3) Basophils (%) (Auto) 0 % (0-3) Neutrophils # (Auto) 8.2 x10^3uL (1.8-7.7) Lymphocytes # (Auto) 2.2 x10^3/uL (1.0-4.8) Monocytes # (Auto) 1.3 x10^3/uL (0.0-1.1) Eosinophils # (Auto) 0.0 x10^3/uL (0.0-0.7) Basophils # (Auto) 0.0 x10^3/uL (0.0-0.2) Prothrombin Time 13.4 SEC (11.7-14.0) Prothromb Time International Ratio 1.1 (0.8-1.1) Activated Partial Thromboplast Time 32 SEC (24-38) Sodium Level 137 mmol/L (136-145) Potassium Level 3.7 mmol/L (3.5-5.1) Chloride Level 99 mmol/L (98-107) Carbon Dioxide Level 24 mmol/L (21-32) Anion Gap 14 (6-14) Blood Urea Nitrogen 37 mg/dL (8-26) Creatinine 1.6 mg/dL (0.7-1.3) Estimated GFR (Cockcroft-Gault) 44.9 BUN/Creatinine Ratio 23 (6-20) Glucose Level 196 mg/dL (70-99) Calcium Level 9.4 mg/dL (8.5-10.1) Total Bilirubin 0.7 mg/dL (0.2-1.0) Aspartate Amino Transf (AST/SGOT) 31 U/L (15-37) Alanine Aminotransferase (ALT/SGPT) 32 U/L (16-63) Alkaline Phosphatase 79 U/L (46-116) Total Protein 8.3 g/dL (6.4-8.2) Albumin 4.7 g/dL (3.4-5.0) Albumin/Globulin Ratio 1.3 (1.0-1.7) Lipase 235 U/L (73-393) Urine Collection Type Unknown Urine Color Yellow Urine Clarity Clear Urine pH 5.0 Urine Specific [place] >=1.030 Urine Protein >=300 mg/dL (NEG-TRACE) Urine Glucose (UA) Negative mg/dL (NEG) Urine Ketones (Stick) 40 mg/dL (NEG) Urine Blood Small (NEG) Urine Nitrite Negative (NEG) Urine Bilirubin Small (NEG) Urine Urobilinogen Dipstick 1.0 mg/dL (0.2 mg/dL) Urine Leukocyte Esterase Negative (NEG) Urine RBC Rare /HPF (0-2) Urine WBC Occ /HPF (0-4) Urine Bacteria Few /HPF (0-FEW) Urine Hyaline Casts Moderate /HPF Urine Mucus Marked /LPF Glucose (Fingerstick) 157 mg/dL (70-99) 151 mg/dL (70-99) Test 07/20/18 20:46 07/21/18 02:02 07/21/18 03:52 07/21/18 05:53 Glucose (Fingerstick) 130 mg/dL (70-99) 112 mg/dL (70-99) 111 mg/dL (70-99) White Blood Count 13.7 x10^3/uL (4.0-11.0) Red Blood Count 4.06 x10^6/uL (4.30-5.70) Hemoglobin 13.1 g/dL (13.0-17.5) Hematocrit 38.6 % (39.0-53.0) Mean Corpuscular Volume 95 fL (79-100) Mean Corpuscular Hemoglobin 32 pg (25-35) Mean Corpuscular Hemoglobin Concent 34 g/dL (31-37) Red Cell Distribution Width 13.3 % (11.5-14.5) Platelet Count 234 x10^3/uL (140-400) Neutrophils (%) (Auto) 72 % (31-73) Lymphocytes (%) (Auto) 16 % (24-48) Monocytes (%) (Auto) 11 % (0-9) Eosinophils (%) (Auto) 1 % (0-3) Basophils (%) (Auto) 0 % (0-3) Neutrophils # (Auto) 9.9 x10^3uL (1.8-7.7) Lymphocytes # (Auto) 2.1 x10^3/uL (1.0-4.8) Monocytes # (Auto) 1.5 x10^3/uL (0.0-1.1) Eosinophils # (Auto) 0.1 x10^3/uL (0.0-0.7) Basophils # (Auto) 0.0 x10^3/uL (0.0-0.2) Sodium Level 138 mmol/L (136-145) Potassium Level 4.1 mmol/L (3.5-5.1) Chloride Level 104 mmol/L (98-107) Carbon Dioxide Level 22 mmol/L (21-32) Anion Gap 12 (6-14) Blood Urea Nitrogen 29 mg/dL (8-26) Creatinine 1.2 mg/dL (0.7-1.3) Estimated GFR (Cockcroft-Gault) 62.6 Glucose Level 125 mg/dL (70-99) Calcium Level 8.3 mg/dL (8.5-10.1) Laboratory Tests Test 07/20/18 10:49 07/20/18 16:52 07/20/18 20:46 07/21/18 02:02 Glucose (Fingerstick) 157 mg/dL (70-99) 151 mg/dL (70-99) 130 mg/dL (70-99) 112 mg/dL (70-99) Test 07/21/18 03:52 07/21/18 05:53 White Blood Count 13.7 x10^3/uL (4.0-11.0) Red Blood Count 4.06 x10^6/uL (4.30-5.70) Hemoglobin 13.1 g/dL (13.0-17.5) Hematocrit 38.6 % (39.0-53.0) Mean Corpuscular Volume 95 fL (79-100) Mean Corpuscular Hemoglobin 32 pg (25-35) Mean Corpuscular Hemoglobin Concent 34 g/dL (31-37) Red Cell Distribution Width 13.3 % (11.5-14.5) Platelet Count 234 x10^3/uL (140-400) Neutrophils (%) (Auto) 72 % (31-73) Lymphocytes (%) (Auto) 16 % (24-48) Monocytes (%) (Auto) 11 % (0-9) Eosinophils (%) (Auto) 1 % (0-3) Basophils (%) (Auto) 0 % (0-3) Neutrophils # (Auto) 9.9 x10^3uL (1.8-7.7) Lymphocytes # (Auto) 2.1 x10^3/uL (1.0-4.8) Monocytes # (Auto) 1.5 x10^3/uL (0.0-1.1) Eosinophils # (Auto) 0.1 x10^3/uL (0.0-0.7) Basophils # (Auto) 0.0 x10^3/uL (0.0-0.2) Sodium Level 138 mmol/L (136-145) Potassium Level 4.1 mmol/L (3.5-5.1) Chloride Level 104 mmol/L (98-107) Carbon Dioxide Level 22 mmol/L (21-32) Anion Gap 12 (6-14) Blood Urea Nitrogen 29 mg/dL (8-26) Creatinine 1.2 mg/dL (0.7-1.3) Estimated GFR (Cockcroft-Gault) 62.6 Glucose Level 125 mg/dL (70-99) Calcium Level 8.3 mg/dL (8.5-10.1) Glucose (Fingerstick) 111 mg/dL (70-99) I have reviewed the following plain films this AM reviewed Problem List Problems Medical Problems: (1) Small bowel obstruction Status: Acute Assessment/Plan pSBO/ileus/enteritis improved NG trial STELLA PETIT MD July 21, 2018 09:31
--- NOTE | 2018-07-21 10:03 | PDOC ---
PROGRESS NOTES Subjective Subjective feels better. ng clamped. had 1 loose stool today. no abdominal cramps. no nausea or vomiting. lab reviewed. sbc higher 13K. afebrile. Objective Objective Vital Signs Date Time Temp Pulse Resp B/P (MAP) Pulse Ox O2 Delivery O2 Flow Rate FiO2 07/21/18 08:00 Room Air 07/21/18 07:15 98.1 67 18 147/75 (99) 98 98.1 Intake and Output 07/21/18 06:59 Intake Total 1200 ml Output Total 850 ml Balance 350 ml Intake Oral 200 ml IV Total 1000 ml Output Urine Total 550 ml Gastric Drainage Total 300 ml Physical Exam Abdomen: Normal bowel sounds, Soft, No tenderness, No hepatosplenomegaly Heart: Regular rate, Normal S1, Normal S2 Extremities: No edema General: Alert HEENT: Atraumatic, Other (ng tube clamped) Lungs: Clear to auscultation Neuro: Normal speech Psych/Mental Status: Mental status NL Skin: No rashes Assessment Assessment Problems1. Partial small-bowel obstruction versus an ileus. improved 3. Possible gastroenteritis with nausea and vomiting and diarrhea 4. Diabetes mellitus type 2. 5. Hypothyroidism. 6. Mild leukocytosis. Medical Problems: (1) Small bowel obstruction Status: Acute Plan Plan of Care clamp NG tube decrease iv fluids lab tomorrow zofran iv prn iv protonix Comment Review of Relevant I have reviewed the following items isabela (where applicable) has been applied. Labs Laboratory Tests Test 07/20/18 05:35 07/20/18 06:35 07/20/18 10:49 07/20/18 16:52 White Blood Count 11.7 x10^3/uL (4.0-11.0) Red Blood Count 4.58 x10^6/uL (4.30-5.70) Hemoglobin 15.2 g/dL (13.0-17.5) Hematocrit 43.0 % (39.0-53.0) Mean Corpuscular Volume 94 fL (79-100) Mean Corpuscular Hemoglobin 33 pg (25-35) Mean Corpuscular Hemoglobin Concent 35 g/dL (31-37) Red Cell Distribution Width 13.2 % (11.5-14.5) Platelet Count 271 x10^3/uL (140-400) Neutrophils (%) (Auto) 70 % (31-73) Lymphocytes (%) (Auto) 18 % (24-48) Monocytes (%) (Auto) 11 % (0-9) Eosinophils (%) (Auto) 0 % (0-3) Basophils (%) (Auto) 0 % (0-3) Neutrophils # (Auto) 8.2 x10^3uL (1.8-7.7) Lymphocytes # (Auto) 2.2 x10^3/uL (1.0-4.8) Monocytes # (Auto) 1.3 x10^3/uL (0.0-1.1) Eosinophils # (Auto) 0.0 x10^3/uL (0.0-0.7) Basophils # (Auto) 0.0 x10^3/uL (0.0-0.2) Prothrombin Time 13.4 SEC (11.7-14.0) Prothromb Time International Ratio 1.1 (0.8-1.1) Activated Partial Thromboplast Time 32 SEC (24-38) Sodium Level 137 mmol/L (136-145) Potassium Level 3.7 mmol/L (3.5-5.1) Chloride Level 99 mmol/L (98-107) Carbon Dioxide Level 24 mmol/L (21-32) Anion Gap 14 (6-14) Blood Urea Nitrogen 37 mg/dL (8-26) Creatinine 1.6 mg/dL (0.7-1.3) Estimated GFR (Cockcroft-Gault) 44.9 BUN/Creatinine Ratio 23 (6-20) Glucose Level 196 mg/dL (70-99) Calcium Level 9.4 mg/dL (8.5-10.1) Total Bilirubin 0.7 mg/dL (0.2-1.0) Aspartate Amino Transf (AST/SGOT) 31 U/L (15-37) Alanine Aminotransferase (ALT/SGPT) 32 U/L (16-63) Alkaline Phosphatase 79 U/L (46-116) Total Protein 8.3 g/dL (6.4-8.2) Albumin 4.7 g/dL (3.4-5.0) Albumin/Globulin Ratio 1.3 (1.0-1.7) Lipase 235 U/L (73-393) Urine Collection Type Unknown Urine Color Yellow Urine Clarity Clear Urine pH 5.0 Urine Specific [place] >=1.030 Urine Protein >=300 mg/dL (NEG-TRACE) Urine Glucose (UA) Negative mg/dL (NEG) Urine Ketones (Stick) 40 mg/dL (NEG) Urine Blood Small (NEG) Urine Nitrite Negative (NEG) Urine Bilirubin Small (NEG) Urine Urobilinogen Dipstick 1.0 mg/dL (0.2 mg/dL) Urine Leukocyte Esterase Negative (NEG) Urine RBC Rare /HPF (0-2) Urine WBC Occ /HPF (0-4) Urine Bacteria Few /HPF (0-FEW) Urine Hyaline Casts Moderate /HPF Urine Mucus Marked /LPF Glucose (Fingerstick) 157 mg/dL (70-99) 151 mg/dL (70-99) Test 07/20/18 20:46 07/21/18 02:02 07/21/18 03:52 07/21/18 05:53 Glucose (Fingerstick) 130 mg/dL (70-99) 112 mg/dL (70-99) 111 mg/dL (70-99) White Blood Count 13.7 x10^3/uL (4.0-11.0) Red Blood Count 4.06 x10^6/uL (4.30-5.70) Hemoglobin 13.1 g/dL (13.0-17.5) Hematocrit 38.6 % (39.0-53.0) Mean Corpuscular Volume 95 fL (79-100) Mean Corpuscular Hemoglobin 32 pg (25-35) Mean Corpuscular Hemoglobin Concent 34 g/dL (31-37) Red Cell Distribution Width 13.3 % (11.5-14.5) Platelet Count 234 x10^3/uL (140-400) Neutrophils (%) (Auto) 72 % (31-73) Lymphocytes (%) (Auto) 16 % (24-48) Monocytes (%) (Auto) 11 % (0-9) Eosinophils (%) (Auto) 1 % (0-3) Basophils (%) (Auto) 0 % (0-3) Neutrophils # (Auto) 9.9 x10^3uL (1.8-7.7) Lymphocytes # (Auto) 2.1 x10^3/uL (1.0-4.8) Monocytes # (Auto) 1.5 x10^3/uL (0.0-1.1) Eosinophils # (Auto) 0.1 x10^3/uL (0.0-0.7) Basophils # (Auto) 0.0 x10^3/uL (0.0-0.2) Sodium Level 138 mmol/L (136-145) Potassium Level 4.1 mmol/L (3.5-5.1) Chloride Level 104 mmol/L (98-107) Carbon Dioxide Level 22 mmol/L (21-32) Anion Gap 12 (6-14) Blood Urea Nitrogen 29 mg/dL (8-26) Creatinine 1.2 mg/dL (0.7-1.3) Estimated GFR (Cockcroft-Gault) 62.6 Glucose Level 125 mg/dL (70-99) Calcium Level 8.3 mg/dL (8.5-10.1) Laboratory Tests Test 07/20/18 10:49 07/20/18 16:52 07/20/18 20:46 07/21/18 02:02 Glucose (Fingerstick) 157 mg/dL (70-99) 151 mg/dL (70-99) 130 mg/dL (70-99) 112 mg/dL (70-99) Test 07/21/18 03:52 07/21/18 05:53 White Blood Count 13.7 x10^3/uL (4.0-11.0) Red Blood Count 4.06 x10^6/uL (4.30-5.70) Hemoglobin 13.1 g/dL (13.0-17.5) Hematocrit 38.6 % (39.0-53.0) Mean Corpuscular Volume 95 fL (79-100) Mean Corpuscular Hemoglobin 32 pg (25-35) Mean Corpuscular Hemoglobin Concent 34 g/dL (31-37) Red Cell Distribution Width 13.3 % (11.5-14.5) Platelet Count 234 x10^3/uL (140-400) Neutrophils (%) (Auto) 72 % (31-73) Lymphocytes (%) (Auto) 16 % (24-48) Monocytes (%) (Auto) 11 % (0-9) Eosinophils (%) (Auto) 1 % (0-3) Basophils (%) (Auto) 0 % (0-3) Neutrophils # (Auto) 9.9 x10^3uL (1.8-7.7) Lymphocytes # (Auto) 2.1 x10^3/uL (1.0-4.8) Monocytes # (Auto) 1.5 x10^3/uL (0.0-1.1) Eosinophils # (Auto) 0.1 x10^3/uL (0.0-0.7) Basophils # (Auto) 0.0 x10^3/uL (0.0-0.2) Sodium Level 138 mmol/L (136-145) Potassium Level 4.1 mmol/L (3.5-5.1) Chloride Level 104 mmol/L (98-107) Carbon Dioxide Level 22 mmol/L (21-32) Anion Gap 12 (6-14) Blood Urea Nitrogen 29 mg/dL (8-26) Creatinine 1.2 mg/dL (0.7-1.3) Estimated GFR (Cockcroft-Gault) 62.6 Glucose Level 125 mg/dL (70-99) Calcium Level 8.3 mg/dL (8.5-10.1) Glucose (Fingerstick) 111 mg/dL (70-99) Medications Current Medications Ondansetron HCl (Zofran) 4 mg 1X ONCE IV ; Start 07/20/18 at 06:15; Stop 07/20/18 at 06:34; Status DC Sodium Chloride 1,000 ml @ 1,000 mls/hr Q1H IV Last administered on 07/20/18at 06:26; Start 07/20/18 at 06:15; Stop 07/20/18 at 07:14; Status DC Ondansetron HCl (Zofran) 8 mg 1X ONCE IV Last administered on 07/20/18at 06:26; Start 07/20/18 at 06:30; Stop 07/20/18 at 06:31; Status DC Iohexol (Omnipaque 240 Mg/ml) 50 ml 1X ONCE PO ; Start 07/20/18 at 07:15; Stop 07/20/18 at 07:16; Status DC Info (CONTRAST GIVEN -- Rx MONITORING) 1 each PRN DAILY PRN MC SEE COMMENTS; Start 07/20/18 at 07:15; Stop 07/22/18 at 07:14 Ondansetron HCl (Zofran) 4 mg PRN Q8HRS PRN IV NAUSEA/VOMITING; Start 07/20/18 at 09:15; Stop 07/20/18 at 10:43; Status DC Sodium Chloride 1,000 ml @ 100 mls/hr Q10H IV ; Start 07/20/18 at 09:08; Stop 07/20/18 at 10:43; Status DC Benzocaine (Hurricaine One) 1 spray 1X ONCE MM Last administered on 07/20/18at 10:05; Start 07/20/18 at 09:45; Stop 07/20/18 at 09:46; Status DC Insulin Human Lispro (HumaLOG) 0-6 UNITS BG 300-39... Q6HRS SQ ; Start 07/20/18 at 12:00 Ondansetron HCl (Zofran) 4 mg PRN Q6HRS PRN IV NAUSEA/VOMITING; Start 07/20/18 at 10:45 Potassium Chloride/Sodium Chloride 1,000 ml @ 125 mls/hr Q8H IV Last administered on 07/21/18at 02:57; Start 07/20/18 at 10:45 Pantoprazole Sodium (PROTONIX VIAL for IV PUSH) 40 mg DAILYAC IVP Last administered on 07/21/18at 08:00; Start 07/20/18 at 11:00 Acetaminophen (Tylenol Supp) 650 mg PRN Q6HRS PRN WI MILD PAIN / TEMP; Start 07/20/18 at 10:45 Diphenhydramine HCl (Benadryl) 25 mg PRN Q6HRS PRN IVP ITCHING Last administered on 07/20/18at 22:01; Start 07/20/18 at 22:00 Morphine Sulfate (Morphine Sulfate) 1 mg PRN Q4HRS PRN IV PAIN; Start 07/20/18 at 22:00 Morphine Sulfate (Morphine Sulfate) 2 mg PRN Q4HRS PRN IV PAIN Last administered on 07/21/18at 01:59; Start 07/20/18 at 22:00 Throat Lozenges (Chloraseptic) 1 spray PRN Q2HR PRN PO SORE THROAT Last administered on 07/20/18at 22:00; Start 07/20/18 at 22:00 Active Scripts Active Percocet 5-325 Mg Tablet (Oxycodone/Acetaminophen) 1 Each Tablet 1 Tab PO PRN Q6HRS PRN Reported Percocet 5-325 Mg Tablet (Oxycodone/Acetaminophen) 1 Each Tablet 1 Tab PO PRN Q4HRS PRN Lovastatin 10 Mg Tablet 10 Mg PO HS Lisinopril 5 Mg Tablet 5 Mg PO DAILY Levothyroxine Sodium 125 Mcg Tablet 125 Mcg PO DAILYAC Gabapentin (Gabapentin) 300 Mg Capsule 300 Mg PO TID Levemir (Insulin Detemir) 100 Unit/1 Ml Vial 15 Unit SQ HS Humalog (Insulin Lispro) 100 Unit/1 Ml Vial 8 Unit SQ TIDBFRMEAL Vitals/I & O Vital Sign - Last 24 Hours 07/20/18 07/20/18 07/20/18 07/20/18 10:45 10:45 15:00 19:00 Temp 98.0 97.9 98.2 98.0 97.9 98.2 Pulse 84 65 64 Resp 18 17 18 B/P (MAP) 169/87 (114) 142/70 (94) 145/76 (99) Pulse Ox 100 98 95 O2 Delivery Room Air Room Air Room Air Room Air 07/20/18 07/21/18 07/21/18 07/21/18 23:00 01:59 02:29 03:00 Temp 98.4 98.3 98.4 98.3 Pulse 66 59 Resp 18 20 20 18 B/P (MAP) 137/73 (94) 130/76 (94) Pulse Ox 99 99 99 98 O2 Delivery Room Air Room Air Room Air Room Air 07/21/18 07/21/18 07:15 08:00 Temp 98.1 98.1 Pulse 67 Resp 18 B/P (MAP) 147/75 (99) Pulse Ox 98 O2 Delivery Room Air Room Air Intake and Output 07/20/18 07/20/18 07/21/18 14:59 22:59 06:59 Intake Total 1000 ml 200 ml Output Total 650 ml 200 ml Balance 1000 ml -650 ml 0 ml KIMI DILLARD MD July 21, 2018 10:03
--- NOTE | 2018-07-21 10:13 | NUR ---
SW following for discharge planning. Discussed with RN, pt is from home. NG tube clamped, possible discharge home today if tests okay. RN advised no SW needs.
[2018-07-21 11:15] VITALS: BP 137/54
--- NOTE | 2018-07-21 14:03 | NUR ---
Wound care: patient seen per wound care consult. There are no open wounds at this time. Please re consult regarding any changes per wound care. Wound care will sign off at this time.
[2018-07-21 15:00] VITALS: BP 141/78
[2018-07-21 19:00] VITALS: BP 124/81
[2018-07-21 23:00] VITALS: BP 129/68
[2018-07-22 03:00] VITALS: BP 134/69
[2018-07-22] MEDS: INSULIN LISPRO 300 UNITS/3 ML INSULN.PEN. SQ SCH ×2 (06:00)
[2018-07-22 07:00] VITALS: BP 134/67
[2018-07-22] MEDS: PANTOPRAZOLE IV PUSH 40 MG VIAL. IVP SCH (07:58)
[2018-07-22 08:02] LABS: BASO % 0 % (0-3); EOS # 0.1 x10^3/uL (0.0-0.7); EOS % 1 % (0-3); HEMATOCRIT 42.1 % (39.0-53.0); HEMOGLOBIN 14.7 g/dL (13.0-17.5); LYMPH # 2.1 x10^3/uL (1.0-4.8); LYMPH % 24 % (24-48); MEAN CORPUSCULAR HEMOGLOBIN 33 pg (25-35); MEAN CORPUSCULAR HGB CONC 35 g/dL (31-37); MEAN CORPUSCULAR VOLUME 94 fL (79-100); MONO % 12 % (0-9); NEUT # 5.5 x10^3uL (1.8-7.7); NEUT % 63 % (31-73); PLATELET COUNT 243 x10^3/uL (140-400); RED BLOOD COUNT 4.47 x10^6/uL (4.30-5.70); RED CELL DISTRIBUTION WIDTH 13.2 % (11.5-14.5); WHITE BLOOD COUNT 8.8 x10^3/uL (4.0-11.0)
[2018-07-22 08:12] LABS: CALCIUM 8.8 mg/dL (8.5-10.1); CREATININE 1.1 mg/dL (0.7-1.3); GFR 69.2; POTASSIUM 4.2 mmol/L (3.5-5.1)
--- NOTE | 2018-07-22 10:00 | PDOC ---
PROGRESS NOTES Subjective Subjective appetite is good no nausea or vomiting. tolerated clear liquids. loose stool last night and this morning. no abdominal pain. feels better . lab reviewed. Objective Objective Vital Signs Date Time Temp Pulse Resp B/P (MAP) Pulse Ox O2 Delivery O2 Flow Rate FiO2 07/22/18 07:40 Room Air 07/22/18 07:00 98.1 63 18 134/67 (89) 91 98.1 Intake and Output 07/22/18 07:00 Intake Total 2520 ml Output Total 100 ml Balance 2420 ml Intake Oral 720 ml IV Total 900 ml Other 900 ml Gastric Drainage Total 100 ml # Voids 3 Physical Exam Abdomen: Normal bowel sounds, Soft, No tenderness Heart: Regular rate, Normal S1, Normal S2 Extremities: No edema General: Alert HEENT: Atraumatic Lungs: Clear to auscultation Neuro: Normal speech Psych/Mental Status: Mental status NL Skin: No rashes Assessment Assessment Problems1. acute gastroenteritis 4. Diabetes mellitus type 2. 5. Hypothyroidism. 6. Mild leukocytosis.resolved Medical Problems: (1) Small bowel obstruction Status: Acute Plan Plan of Care advance diet dismiss today Comment Review of Relevant I have reviewed the following items isabela (where applicable) has been applied. Labs Laboratory Tests Test 07/20/18 10:49 07/20/18 16:52 07/20/18 20:46 07/21/18 02:02 Glucose (Fingerstick) 157 mg/dL (70-99) 151 mg/dL (70-99) 130 mg/dL (70-99) 112 mg/dL (70-99) Test 07/21/18 03:52 07/21/18 05:53 07/21/18 12:04 07/21/18 17:32 White Blood Count 13.7 x10^3/uL (4.0-11.0) Red Blood Count 4.06 x10^6/uL (4.30-5.70) Hemoglobin 13.1 g/dL (13.0-17.5) Hematocrit 38.6 % (39.0-53.0) Mean Corpuscular Volume 95 fL (79-100) Mean Corpuscular Hemoglobin 32 pg (25-35) Mean Corpuscular Hemoglobin Concent 34 g/dL (31-37) Red Cell Distribution Width 13.3 % (11.5-14.5) Platelet Count 234 x10^3/uL (140-400) Neutrophils (%) (Auto) 72 % (31-73) Lymphocytes (%) (Auto) 16 % (24-48) Monocytes (%) (Auto) 11 % (0-9) Eosinophils (%) (Auto) 1 % (0-3) Basophils (%) (Auto) 0 % (0-3) Neutrophils # (Auto) 9.9 x10^3uL (1.8-7.7) Lymphocytes # (Auto) 2.1 x10^3/uL (1.0-4.8) Monocytes # (Auto) 1.5 x10^3/uL (0.0-1.1) Eosinophils # (Auto) 0.1 x10^3/uL (0.0-0.7) Basophils # (Auto) 0.0 x10^3/uL (0.0-0.2) Sodium Level 138 mmol/L (136-145) Potassium Level 4.1 mmol/L (3.5-5.1) Chloride Level 104 mmol/L (98-107) Carbon Dioxide Level 22 mmol/L (21-32) Anion Gap 12 (6-14) Blood Urea Nitrogen 29 mg/dL (8-26) Creatinine 1.2 mg/dL (0.7-1.3) Estimated GFR (Cockcroft-Gault) 62.6 Glucose Level 125 mg/dL (70-99) Calcium Level 8.3 mg/dL (8.5-10.1) Glucose (Fingerstick) 111 mg/dL (70-99) 126 mg/dL (70-99) 102 mg/dL (70-99) Test 07/21/18 23:59 07/22/18 06:12 07/22/18 07:00 Glucose (Fingerstick) 114 mg/dL (70-99) 115 mg/dL (70-99) White Blood Count 8.8 x10^3/uL (4.0-11.0) Red Blood Count 4.47 x10^6/uL (4.30-5.70) Hemoglobin 14.7 g/dL (13.0-17.5) Hematocrit 42.1 % (39.0-53.0) Mean Corpuscular Volume 94 fL (79-100) Mean Corpuscular Hemoglobin 33 pg (25-35) Mean Corpuscular Hemoglobin Concent 35 g/dL (31-37) Red Cell Distribution Width 13.2 % (11.5-14.5) Platelet Count 243 x10^3/uL (140-400) Neutrophils (%) (Auto) 63 % (31-73) Lymphocytes (%) (Auto) 24 % (24-48) Monocytes (%) (Auto) 12 % (0-9) Eosinophils (%) (Auto) 1 % (0-3) Basophils (%) (Auto) 0 % (0-3) Neutrophils # (Auto) 5.5 x10^3uL (1.8-7.7) Lymphocytes # (Auto) 2.1 x10^3/uL (1.0-4.8) Monocytes # (Auto) 1.0 x10^3/uL (0.0-1.1) Eosinophils # (Auto) 0.1 x10^3/uL (0.0-0.7) Basophils # (Auto) 0.0 x10^3/uL (0.0-0.2) Sodium Level 137 mmol/L (136-145) Potassium Level 4.2 mmol/L (3.5-5.1) Chloride Level 103 mmol/L (98-107) Carbon Dioxide Level 24 mmol/L (21-32) Anion Gap 10 (6-14) Blood Urea Nitrogen 19 mg/dL (8-26) Creatinine 1.1 mg/dL (0.7-1.3) Estimated GFR (Cockcroft-Gault) 69.2 Glucose Level 130 mg/dL (70-99) Calcium Level 8.8 mg/dL (8.5-10.1) Laboratory Tests Test 07/21/18 12:04 07/21/18 17:32 07/21/18 23:59 07/22/18 06:12 Glucose (Fingerstick) 126 mg/dL (70-99) 102 mg/dL (70-99) 114 mg/dL (70-99) 115 mg/dL (70-99) Test 07/22/18 07:00 White Blood Count 8.8 x10^3/uL (4.0-11.0) Red Blood Count 4.47 x10^6/uL (4.30-5.70) Hemoglobin 14.7 g/dL (13.0-17.5) Hematocrit 42.1 % (39.0-53.0) Mean Corpuscular Volume 94 fL (79-100) Mean Corpuscular Hemoglobin 33 pg (25-35) Mean Corpuscular Hemoglobin Concent 35 g/dL (31-37) Red Cell Distribution Width 13.2 % (11.5-14.5) Platelet Count 243 x10^3/uL (140-400) Neutrophils (%) (Auto) 63 % (31-73) Lymphocytes (%) (Auto) 24 % (24-48) Monocytes (%) (Auto) 12 % (0-9) Eosinophils (%) (Auto) 1 % (0-3) Basophils (%) (Auto) 0 % (0-3) Neutrophils # (Auto) 5.5 x10^3uL (1.8-7.7) Lymphocytes # (Auto) 2.1 x10^3/uL (1.0-4.8) Monocytes # (Auto) 1.0 x10^3/uL (0.0-1.1) Eosinophils # (Auto) 0.1 x10^3/uL (0.0-0.7) Basophils # (Auto) 0.0 x10^3/uL (0.0-0.2) Sodium Level 137 mmol/L (136-145) Potassium Level 4.2 mmol/L (3.5-5.1) Chloride Level 103 mmol/L (98-107) Carbon Dioxide Level 24 mmol/L (21-32) Anion Gap 10 (6-14) Blood Urea Nitrogen 19 mg/dL (8-26) Creatinine 1.1 mg/dL (0.7-1.3) Estimated GFR (Cockcroft-Gault) 69.2 Glucose Level 130 mg/dL (70-99) Calcium Level 8.8 mg/dL (8.5-10.1) Medications Current Medications Ondansetron HCl (Zofran) 4 mg 1X ONCE IV ; Start 07/20/18 at 06:15; Stop 07/20/18 at 06:34; Status DC Sodium Chloride 1,000 ml @ 1,000 mls/hr Q1H IV Last administered on 07/20/18at 06:26; Start 07/20/18 at 06:15; Stop 07/20/18 at 07:14; Status DC Ondansetron HCl (Zofran) 8 mg 1X ONCE IV Last administered on 07/20/18at 06:26; Start 07/20/18 at 06:30; Stop 07/20/18 at 06:31; Status DC Iohexol (Omnipaque 240 Mg/ml) 50 ml 1X ONCE PO ; Start 07/20/18 at 07:15; Stop 07/20/18 at 07:16; Status DC Info (CONTRAST GIVEN -- Rx MONITORING) 1 each PRN DAILY PRN MC SEE COMMENTS; Start 07/20/18 at 07:15; Stop 07/22/18 at 07:14; Status DC Ondansetron HCl (Zofran) 4 mg PRN Q8HRS PRN IV NAUSEA/VOMITING; Start 07/20/18 at 09:15; Stop 07/20/18 at 10:43; Status DC Sodium Chloride 1,000 ml @ 100 mls/hr Q10H IV ; Start 07/20/18 at 09:08; Stop 07/20/18 at 10:43; Status DC Benzocaine (Hurricaine One) 1 spray 1X ONCE MM Last administered on 07/20/18at 10:05; Start 07/20/18 at 09:45; Stop 07/20/18 at 09:46; Status DC Insulin Human Lispro (HumaLOG) 0-6 UNITS BG 300-39... Q6HRS SQ ; Start 07/20/18 at 12:00 Ondansetron HCl (Zofran) 4 mg PRN Q6HRS PRN IV NAUSEA/VOMITING; Start 07/20/18 at 10:45 Potassium Chloride/Sodium Chloride 1,000 ml @ 75 mls/hr [id number] IV Last administered on 07/21/18at 23:40; Start 07/20/18 at 10:45 Pantoprazole Sodium (PROTONIX VIAL for IV PUSH) 40 mg DAILYAC IVP Last administered on 07/22/18at 07:58; Start 07/20/18 at 11:00 Acetaminophen (Tylenol Supp) 650 mg PRN Q6HRS PRN [place] MILD PAIN / TEMP; Start 07/20/18 at 10:45 Diphenhydramine HCl (Benadryl) 25 mg PRN Q6HRS PRN IVP ITCHING Last administ ered on 07/20/18at 22:01; Start 07/20/18 at 22:00 Morphine Sulfate (Morphine Sulfate) 1 mg PRN Q4HRS PRN IV PAIN; Start 07/20/18 at 22:00 Morphine Sulfate (Morphine Sulfate) 2 mg PRN Q4HRS PRN IV PAIN Last administered on 07/21/18at 01:59; Start 07/20/18 at 22:00 Throat Lozenges (Chloraseptic) 1 spray PRN Q2HR PRN PO SORE THROAT Last administered on 07/20/18at 22:00; Start 07/20/18 at 22:00 Active Scripts Active Percocet 5-325 Mg Tablet (Oxycodone/Acetaminophen) 1 Each Tablet 1 Tab PO PRN Q6HRS PRN Reported Percocet 5-325 Mg Tablet (Oxycodone/Acetaminophen) 1 Each Tablet 1 Tab PO PRN Q4HRS PRN Lovastatin 10 Mg Tablet 10 Mg PO HS Lisinopril 5 Mg Tablet 5 Mg PO DAILY Levothyroxine Sodium 125 Mcg Tablet 125 Mcg PO DAILYAC Gabapentin (Gabapentin) 300 Mg Capsule 300 Mg PO TID Levemir (Insulin Detemir) 100 Unit/1 Ml Vial 15 Unit SQ HS Humalog (Insulin Lispro) 100 Unit/1 Ml Vial 8 Unit SQ TIDBFRMEAL Vitals/I & O Vital Sign - Last 24 Hours 07/21/18 07/21/18 07/21/18 07/21/18 11:15 15:00 19:00 19:45 Temp 98.0 97.8 97.6 98.0 97.8 97.6 Pulse 58 67 61 Resp 20 20 16 B/P (MAP) 137/54 (81) 141/78 (99) 124/81 (95) Pulse Ox 96 98 99 O2 Delivery Room Air Room Air Room Air Room Air 07/21/18 07/22/18 07/22/18 07/22/18 23:00 03:00 07:00 07:40 Temp 99.2 99.1 98.1 99.2 99.1 98.1 Pulse 60 61 63 Resp 16 16 18 B/P (MAP) 129/68 (88) 134/69 (90) 134/67 (89) Pulse Ox 97 99 91 O2 Delivery Room Air Room Air Room Air Room Air Intake and Output 07/21/18 07/21/18 07/22/18 15:00 23:00 07:00 Intake Total 2520 ml Output Total 100 ml Balance -100 ml 2520 ml KIMI DILLARD MD July 22, 2018 10:00
--- NOTE | 2018-07-22 10:04 | DISCH ---
DISCHARGE INSTRUCTIONS Condition on Discharge Condition on Discharge: Stable Activity After Discharge Activity Instructions for Disc: Activity as tolerated, Avoid exertion Lifting Instructions after Dis: No heavy lifting Driving Instructions after Dis: Do not drive Diet after Discharge Diet after Discharge: Diabetic No Calorie Level Wound Incision Care Wound/Incision Care: Ice to area for comfort Contacting the DRDeepti after DC Call your doctor for: If your condition worsens Follow-Up Follow up with: office visit with dr. dillard next week KIMI DILLARD MD July 22, 2018 10:04
--- NOTE | 2018-07-22 10:08 | PDOC ---
Provider Note Provider Note discharge summary dictated # [id number] KIMI DILLARD MD July 22, 2018 10:08
--- NOTE | 2018-07-22 10:38 | NUR ---
SW following for discharge planning. Discussed with RN, pt discharging home today with self care, no SW needs.
--- NOTE | 2018-07-22 10:58 | NUR ---
Discharge instructions reviewed with pt, no new prescription upon dc. Education on SBO and advancing diet given to pt. Answered questions and concerns, pt awaiting for his to berry picker from hospital.
--- NOTE | 2018-07-22 11:38 | PDOC ---
[employer] 07/22/18 1138: SURGICAL PROGRESS NOTE Subjective tolerating diet gas and stool no pain Vital Signs Vital Signs Date Time Temp Pulse Resp B/P (MAP) Pulse Ox O2 Delivery O2 Flow Rate FiO2 07/22/18 07:40 Room Air 07/22/18 07:00 98.1 63 18 134/67 (89) 91 98.1 I&O Intake and Output 07/22/18 06:59 Intake Total 2520 ml Output Total 100 ml Balance 2420 ml Intake Oral 720 ml IV Total 900 ml Other 900 ml Gastric Drainage Total 100 ml # Voids 3 General: Alert, Oriented X3, Cooperative, No acute distress Abdomen: Soft, No tenderness Labs Laboratory Tests Test 07/20/18 16:52 07/20/18 20:46 07/21/18 02:02 07/21/18 03:52 Glucose (Fingerstick) 151 mg/dL (70-99) 130 mg/dL (70-99) 112 mg/dL (70-99) White Blood Count 13.7 x10^3/uL (4.0-11.0) Red Blood Count 4.06 x10^6/uL (4.30-5.70) Hemoglobin 13.1 g/dL (13.0-17.5) Hematocrit 38.6 % (39.0-53.0) Mean Corpuscular Volume 95 fL (79-100) Mean Corpuscular Hemoglobin 32 pg (25-35) Mean Corpuscular Hemoglobin Concent 34 g/dL (31-37) Red Cell Distribution Width 13.3 % (11.5-14.5) Platelet Count 234 x10^3/uL (140-400) Neutrophils (%) (Auto) 72 % (31-73) Lymphocytes (%) (Auto) 16 % (24-48) Monocytes (%) (Auto) 11 % (0-9) Eosinophils (%) (Auto) 1 % (0-3) Basophils (%) (Auto) 0 % (0-3) Neutrophils # (Auto) 9.9 x10^3uL (1.8-7.7) Lymphocytes # (Auto) 2.1 x10^3/uL (1.0-4.8) Monocytes # (Auto) 1.5 x10^3/uL (0.0-1.1) Eosinophils # (Auto) 0.1 x10^3/uL (0.0-0.7) Basophils # (Auto) 0.0 x10^3/uL (0.0-0.2) Sodium Level 138 mmol/L (136-145) Potassium Level 4.1 mmol/L (3.5-5.1) Chloride Level 104 mmol/L (98-107) Carbon Dioxide Level 22 mmol/L (21-32) Anion Gap 12 (6-14) Blood Urea Nitrogen 29 mg/dL (8-26) Creatinine 1.2 mg/dL (0.7-1.3) Estimated GFR (Cockcroft-Gault) 62.6 Glucose Level 125 mg/dL (70-99) Calcium Level 8.3 mg/dL (8.5-10.1) Test 07/21/18 05:53 07/21/18 12:04 07/21/18 17:32 07/21/18 23:59 Glucose (Fingerstick) 111 mg/dL (70-99) 126 mg/dL (70-99) 102 mg/dL (70-99) 114 mg/dL (70-99) Test 07/22/18 06:12 07/22/18 07:00 Glucose (Fingerstick) 115 mg/dL (70-99) White Blood Count 8.8 x10^3/uL (4.0-11.0) Red Blood Count 4.47 x10^6/uL (4.30-5.70) Hemoglobin 14.7 g/dL (13.0-17.5) Hematocrit 42.1 % (39.0-53.0) Mean Corpuscular Volume 94 fL (79-100) Mean Corpuscular Hemoglobin 33 pg (25-35) Mean Corpuscular Hemoglobin Concent 35 g/dL (31-37) Red Cell Distribution Width 13.2 % (11.5-14.5) Platelet Count 243 x10^3/uL (140-400) Neutrophils (%) (Auto) 63 % (31-73) Lymphocytes (%) (Auto) 24 % (24-48) Monocytes (%) (Auto) 12 % (0-9) Eosinophils (%) (Auto) 1 % (0-3) Basophils (%) (Auto) 0 % (0-3) Neutrophils # (Auto) 5.5 x10^3uL (1.8-7.7) Lymphocytes # (Auto) 2.1 x10^3/uL (1.0-4.8) Monocytes # (Auto) 1.0 x10^3/uL (0.0-1.1) Eosinophils # (Auto) 0.1 x10^3/uL (0.0-0.7) Basophils # (Auto) 0.0 x10^3/uL (0.0-0.2) Sodium Level 137 mmol/L (136-145) Potassium Level 4.2 mmol/L (3.5-5.1) Chloride Level 103 mmol/L (98-107) Carbon Dioxide Level 24 mmol/L (21-32) Anion Gap 10 (6-14) Blood Urea Nitrogen 19 mg/dL (8-26) Creatinine 1.1 mg/dL (0.7-1.3) Estimated GFR (Cockcroft-Gault) 69.2 Glucose Level 130 mg/dL (70-99) Calcium Level 8.8 mg/dL (8.5-10.1) Laboratory Tests Test 07/21/18 12:04 07/21/18 17:32 07/21/18 23:59 07/22/18 06:12 Glucose (Fingerstick) 126 mg/dL (70-99) 102 mg/dL (70-99) 114 mg/dL (70-99) 115 mg/dL (70-99) Test 07/22/18 07:00 White Blood Count 8.8 x10^3/uL (4.0-11.0) Red Blood Count 4.47 x10^6/uL (4.30-5.70) Hemoglobin 14.7 g/dL (13.0-17.5) Hematocrit 42.1 % (39.0-53.0) Mean Corpuscular Volume 94 fL (79-100) Mean Corpuscular Hemoglobin 33 pg (25-35) Mean Corpuscular Hemoglobin Concent 35 g/dL (31-37) Red Cell Distribution Width 13.2 % (11.5-14.5) Platelet Count 243 x10^3/uL (140-400) Neutrophils (%) (Auto) 63 % (31-73) Lymphocytes (%) (Auto) 24 % (24-48) Monocytes (%) (Auto) 12 % (0-9) Eosinophils (%) (Auto) 1 % (0-3) Basophils (%) (Auto) 0 % (0-3) Neutrophils # (Auto) 5.5 x10^3uL (1.8-7.7) Lymphocytes # (Auto) 2.1 x10^3/uL (1.0-4.8) Monocytes # (Auto) 1.0 x10^3/uL (0.0-1.1) Eosinophils # (Auto) 0.1 x10^3/uL (0.0-0.7) Basophils # (Auto) 0.0 x10^3/uL (0.0-0.2) Sodium Level 137 mmol/L (136-145) Potassium Level 4.2 mmol/L (3.5-5.1) Chloride Level 103 mmol/L (98-107) Carbon Dioxide Level 24 mmol/L (21-32) Anion Gap 10 (6-14) Blood Urea Nitrogen 19 mg/dL (8-26) Creatinine 1.1 mg/dL (0.7-1.3) Estimated GFR (Cockcroft-Gault) 69.2 Glucose Level 130 mg/dL (70-99) Calcium Level 8.8 mg/dL (8.5-10.1) Problem List Problems Medical Problems: (1) Small bowel obstruction Status: Acute Assessment/Plan [facility] STELLA PETIT MD 07/22/18 1204: SURGICAL PROGRESS NOTE Assessment/Plan pt seen and examined good to go home f/u prn [employer] July 22, 2018 11:38 STELLA PETIT MD July 22, 2018 12:04
--- NOTE | 2018-07-22 12:50 | NUR ---
Pt ambulated to [facility], or home with .
--- NOTE | 2018-07-22 14:29 | DS ---
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 FINAL DIAGNOSES: 1. Acute viral gastroenteritis. 2. Intractable nausea and vomiting due to the gastroenteritis. 3. Diabetes mellitus type 2. 4. Hypothyroidism. 5. Leukocytosis. HOSPITAL COURSE: The patient is a 58-year-old white male who notes a 2-day history of nausea and vomiting, some intermittent abdominal cramps after he visited a friend in [place] and did not feel like he ate any tainted food or chicken. His friend did not have any similar symptoms. He denied any hematemesis or blood in the stool or fever. He did have the abdominal cramps. He has a history of diabetes mellitus and hypothyroidism. He went to [facility]'s Emergency Room where a CAT scan of the abdomen and pelvis showed some mild distention of his proximal jejunum and duodenum, which could be possibly secondary to a low-grade small-bowel obstruction versus an ileus. The patient was admitted to the hospital, was made n.p.o., started on IV fluids and a nasogastric tube was placed as well as IV antiemetics and IV Protonix. In the following days acute abdominal series was negative. His nasogastric tube was clamped and was removed yesterday, started on clear liquids and tolerated them well today. He had a loose stool last night and this morning without any further nausea, vomiting and is hungry. His leukocytosis resolved. His white count today was 8.8 with a hemoglobin 14.7, platelet count 243,000, 63 polys, 24 lymphocytes. Sodium 137, potassium 4.2, chloride 103, total CO2 was 24, BUN was 19, creatinine 1.1 with a blood sugar of 130 and calcium 8.8. His urinalysis showed only occasional white blood cell. He will have his diet, advanced to full liquids for lunch and then a diabetic diet starting at dinnertime. He will be dismissed to home on the same medications, gabapentin 300 mg p.o. t.i.d., Levemir insulin 15 units at bedtime, Humalog insulin 8 units before meals t.i.d., levothyroxine 125 mcg every day, lisinopril 5 mg every day, Lovastatin 10 mg at bedtime. He will now return to work on 07/26/2018. He will stick to a diabetic diet at home. Check his blood sugars before meals t.i.d. and at bedtime and make an appointment to see Dr. Lynn in the office next week. KIMI LYNN MD DR: Paul JOB#: [id number] / [id number]
== END 2018-07-22 12:50 | disposition home or self-care (01) | DRG 391 ==
LOC: ER 05:31 → 4 NORTH 09:07
PROVIDERS: ADMIT Internal Medicine; ATTEND Internal Medicine
PROC: 0D9670Z Drainage of Stomach with Drainage Device, Via Natural or Artificial Opening (ICD-10-PCS; principal; 2018-07-20)
DX: A08.4 Viral intestinal infection, unspecified (principal); N17.0 Acute kidney failure with tubular necrosis; K56.600 Partial intestinal obstruction, unspecified as to cause; K56.7 Ileus, unspecified; I10 Essential (primary) hypertension; E03.9 Hypothyroidism, unspecified; E11.9 Type 2 diabetes mellitus without complications; E78.5 Hyperlipidemia, unspecified; N40.0 Benign prostatic hyperplasia without lower urinary tract symptoms; Z79.4 Long term (current) use of insulin; Z79.899 Other long term (current) drug therapy; Z83.3 Family history of diabetes mellitus
CPT/HCPCS: 36415; 71045; 74018; 74022; 74176; 80048; 80053; 81001; 82962; 83690; 85025; 85610; 85730; 93005; C9113; J1200; J1815; J2270; J2405; J7030; 99285-25

== ENCOUNTER 2018-11-21 10:47 | Emergency (ER) | payer BC ==
[~2018-11-21] VITALS: Ht 185.4 cm; Wt 93.0 kg
--- NOTE | 2018-11-21 11:49 | PHYS DOC ---
Past Medical History Past Medical History: Diabetes-Type I, High Cholesterol, Hypertension Past Surgical History: Cholecystectomy Additional Past Surgical Histo: scrotal sx Alcohol Use: None Drug Use: None Adult General Chief Complaint Chief Complaint: TOE PROBLEM HPI HPI Patient is a 58-year-old diabetic, who presents to the emergency department for evaluation. He states that on Thursday, he noticed a wound on the second toe on his left foot, and went to an urgent care. The erythema of the toe was marked, around the PIP joint, and he was started on clindamycin. He states that he started on his antibiotics on Thursday evening, and has had some increasing of erythema spreading towards the base of his toe. He has not had any fevers or chills, and denies any numbness or weakness. He does have some mild soreness of his left ankle. He states that he called his roll mechanic on Thursday, and was going to call again on Thursday to schedule an appointment. He is also in the process of establishing care at the wound care center, something he intends to do tomorrow as well. He has no other complaints at this time. He does have diminished sensation in his feet bilaterally, secondary to diabetic neuropathy. Review of Systems Review of Systems Constitutional: Denies fever or chills [] Eyes: Denies change in visual acuity, redness, or eye pain [] HENT: Denies nasal congestion or sore throat [] Respiratory: Denies cough or shortness of breath [] Cardiovascular: The patient denies any shortness of breath, chest pain, palpitations, or orthopnea [] GI: Denies abdominal pain, nausea, vomiting, bloody stools or diarrhea [] : Denies dysuria or hematuria [] Musculoskeletal: Denies back pain or joint pain [] Integument: Denies rash or skin lesions [] Neurologic: Denies headache, focal weakness or new sensory changes [] Endocrine: Denies polyuria or polydipsia [] All other systems were reviewed and found to be within normal limits, except as documented in this note. Allergies Allergies Allergies Coded Allergies Type Severity Reaction Last Updated Verified No Known Drug Allergies 07/06/17 No Physical Exam Physical Exam PHYSICAL EXAM: CONSTITUTIONAL: Well developed, well nourished HEAD: normocephalic, atraumatic EENT: PERRL, EOMI. Conjunctivae normal color, sclerae non-icteric; moist mucous membranes. NECK: Supple, non-tender; no meningismus. LUNGS: Lungs CTA, breathing even and unlabored. Normal air movement. HEART: Regular rate and rhythm, no murmur CHEST: No deformity; non-tender ABDOMEN: The abdomen is soft, and non-tender, no masses or bruits. EXTREM: Normal ROM; no deformity, no calf tenderness. Normal pulses palpable in all extremities. There is no pedal edema. There is a subcentimeter subacute to chronic appearing wound on the plantar surface of the left second toe, there is hyperemia, and very mild soft tissue swelling noted to the entirety of the left second toe. The erythema extends towards the base of the toe and slightly proximally, without involving the foot itself. There is no calf tenderness, ankl e warmth or erythema. SKIN: No rash; no diaphoresis NEURO: Alert; normal speech and cognition; CN's grossly intact; strength grossly intact without focal deficit. BACK: No CVA TTP. Current Patient Data Vital Signs Vital Signs Date Time Temp Pulse Resp B/P (MAP) Pulse Ox O2 Delivery O2 Flow Rate FiO2 11/21/18 11:05 98.1 69 18 154/80 (104) 99 Room Air 98.1 Lab Values Laboratory Tests Test 11/21/18 11:45 White Blood Count 10.3 x10^3/uL (4.0-11.0) Red Blood Count 3.64 x10^6/uL (4.30-5.70) L Hemoglobin 12.3 g/dL (13.0-17.5) L Hematocrit 34.3 % (39.0-53.0) L Mean Corpuscular Volume 94 fL (79-100) Mean Corpuscular Hemoglobin 34 pg (25-35) Mean Corpuscular Hemoglobin Concent 36 g/dL (31-37) Red Cell Distribution Width 13.3 % (11.5-14.5) Platelet Count 231 x10^3/uL (140-400) Neutrophils (%) (Auto) 78 % (31-73) H Lymphocytes (%) (Auto) 14 % (24-48) L Monocytes (%) (Auto) 7 % (0-9) Eosinophils (%) (Auto) 1 % (0-3) Basophils (%) (Auto) 1 % (0-3) Neutrophils # (Auto) 8.0 x10^3/uL (1.8-7.7) H Lymphocytes # (Auto) 1.4 x10^3/uL (1.0-4.8) Monocytes # (Auto) 0.7 x10^3/uL (0.0-1.1) Eosinophils # (Auto) 0.1 x10^3/uL (0.0-0.7) Basophils # (Auto) 0.1 x10^3/uL (0.0-0.2) Sodium Level 140 mmol/L (136-145) Potassium Level 4.3 mmol/L (3.5-5.1) Chloride Level 106 mmol/L (98-107) Carbon Dioxide Level 26 mmol/L (21-32) Anion Gap 8 (6-14) Blood Urea Nitrogen 24 mg/dL (8-26) Creatinine 1.0 mg/dL (0.7-1.3) Estimated GFR (Cockcroft-Gault) 77.3 Glucose Level 177 mg/dL (70-99) H Lactic Acid Level 1.1 mmol/L (0.4-2.0) Calcium Level 9.0 mg/dL (8.5-10.1) C-Reactive Protein, Quantitative 14.2 mg/L (0-3.3) H Laboratory Tests 11/21/18 11:45 Laboratory Tests 11/21/18 11:45 EKG EKG [] Radiology/Procedures Radiology/Procedures [PROCEDURE: TOES LEFT Left second toe 3 views 11/21/2018. Reason for exam: Infection. Soft tissue swelling is seen involving the second toe. There is no apparent fracture or dislocation. No bony destructive process or foreign body is seen. IMPRESSION: Soft tissue swelling. No acute bony abnormality. ] Course & Med Decision Making Course & Med Decision Making Pertinent Labs and Imaging studies reviewed. (See chart for details) []2:00 PM: The patient's condition remains stable. He has been on antibiotics for not even 48 hours. I did discuss hospitalization, but the patient preferred to avoid hospitalization at this time. I do believe that given the oral antibody is a little more time to see if they would be effective would be appropriate. The possibility of underlying osteomyelitis needs to be evaluated, but this can be done as an outpatient if symptoms persist. I do not believe that the patient needs emergent surgical debridement, and he is on an adequate and appropriate oral antibiotic. We did discuss the importance of close follow-up with his roll mechanic and wound care center, as well as return precautions in detail. Dragon Disclaimer Dragon Disclaimer This electronic medical record was generated, in whole or in part, using a voice recognition dictation system. Departure Departure Impression: Primary Impression: Cellulitis of toe Additional Impression: Diabetic ulcer of foot associated with type 2 diabetes mellitus, limited to breakdown of skin Disposition: 01 HOME, SELF-CARE Condition: STABLE Referrals: KIMI DILLARD MD (PCP) Additional Instructions: Follow-up with your roll mechanic, and the wound care center in the next 2 days as instructed. Return to medical care for any new or worsening symptoms, development of increasing pain, spreading redness, or any other new, or concerning symptoms. Continue taking the prescribed antibiotics. Problem Qualifiers RAMO SOLO MD Nov 21, 2018 11:49
--- NOTE | 2018-11-21 11:49 | RAD ---
Left second toe 3 views 11/21/2018. Reason for exam: Infection. Soft tissue swelling is seen involving the second toe. There is no apparent fracture or dislocation. No bony destructive process or foreign body is seen. IMPRESSION: Soft tissue swelling. No acute bony abnormality. Electronically signed by: Arben Patel Jr., MD (11/21/2018 11:46 AM) [facility]
[2018-11-21 12:09] LABS: BASO # 0.1 x10^3/uL (0.0-0.2); BASO % 1 % (0-3); EOS # 0.1 x10^3/uL (0.0-0.7); EOS % 1 % (0-3); HEMATOCRIT 34.3 % (39.0-53.0); HEMOGLOBIN 12.3 g/dL (13.0-17.5); LYMPH # 1.4 x10^3/uL (1.0-4.8); LYMPH % 14 % (24-48); MEAN CORPUSCULAR HEMOGLOBIN 34 pg (25-35); MEAN CORPUSCULAR HGB CONC 36 g/dL (31-37); MEAN CORPUSCULAR VOLUME 94 fL (79-100); MONO # 0.7 x10^3/uL (0.0-1.1); MONO % 7 % (0-9); NEUT % 78 % (31-73); PLATELET COUNT 231 x10^3/uL (140-400); RED BLOOD COUNT 3.64 x10^6/uL (4.30-5.70); RED CELL DISTRIBUTION WIDTH 13.3 % (11.5-14.5); WHITE BLOOD COUNT 10.3 x10^3/uL (4.0-11.0)
[2018-11-21 12:20] LABS: GFR 77.3; POTASSIUM 4.3 mmol/L (3.5-5.1)
[2018-11-21 13:00] VITALS: BP 142/80
== END 2018-11-21 14:35 | disposition home or self-care (01) ==
LOC: ER 10:47
DX: E11.621 Type 2 diabetes mellitus with foot ulcer (principal); L97.521 Non-pressure chronic ulcer of other part of left foot limited to breakdown of skin; L03.032 Cellulitis of left toe; E11.40 Type 2 diabetes mellitus with diabetic neuropathy, unspecified; E78.00 Pure hypercholesterolemia, unspecified; I10 Essential (primary) hypertension; Z90.49 Acquired absence of other specified parts of digestive tract
CPT/HCPCS: 36415; 73660; 80048; 83605; 85025; 85651; 86140; 87040; 99285-25

== ENCOUNTER → 2018-11-23 | Outpatient (CLI) | payer BC ==
[2018-11-21 13:00] VITALS: BP 142/80
[~2018-11-23] MED LIST changes: -INSU100V SQ; +INSU100V6 SQ
== END | disposition home or self-care (01) ==
LOC: SPEC 16:46
PROVIDERS: ATTEND Podiatrist
DX: E11.621 Type 2 diabetes mellitus with foot ulcer (principal)
CPT/HCPCS: 87071; 87075

== ENCOUNTER 2018-12-16 11:30 | Day surgery (SDC) | payer BC ==
[~2018-12-16] VITALS: Ht 185.4 cm; Wt 94.0 kg
[~2018-12-16 11:30] MED LIST changes: +HYDROmorphone 2 MG/ML VIAL IV PRN; +IV RINGERS,LACTATED 1000ML 1,000 ML IV SCH; +LIDOCAINE 1% PF 2 ML VIAL. ID PRN; +MORPHINE SULFATE 2 MG/ML VIAL. IV PRN; +ONDANSETRON PF 4 MG/2 ML VIAL. IV PRN; +PROCHLORPERAZINE 10 MG/2 ML VIAL. IV PRN; +fentaNYL PF VIAL 100 MCG/2 ML VIAL IV PRN
[2018-12-16] MEDS ORDERED: INSULIN LISPRO 100 UNIT/ML 3ML VIAL for OP,RR ONLY. SQ PRN (12:15)
--- NOTE | 2018-12-16 12:21 | PDOC1 ---
History and Physical Date of Admission Date of Admission DATE: 12/16/18 TIME: 12:02 Identification/Chief Complaint Chief Complaint Left 2nd toe infection Source Source: Chart review, Patient History of Present Illness History of Present Illness Mr Mitchell is a 58-year-old male w/ PMHx DM2, HTN, BPH, hypothyroidism who presents today for surgical debridement and amputation of left 2nd toe infection. He was seen for SBO earlier this year, recovered well. Travel history is also negative and has been on recent antibiotics. He does have a history of diabetes mellitus and does take insulin. He says his blood sugar today was 142. EKG reviewed showing NSR. X-ray shows soft tissue swelling on 11/21/18 of left 2nd toe. MRI performed confirming bone involvement last week, he was also seen in ED for concern for drainage. Has been on 4 weeks of clindamycin 300mg TID per his PCP and ID recommendations and has been recommended for amputation. Has been seen in wound clinic, shows good vascular flow. Past Medical History Cardiovascular: HTN, Hyperlipidemia Endocrine: Diabetes Past Surgical History Past Surgical History: Cholecystectomy Family History Family History: Diabetes Social History Smoke: No ALCOHOL: none Drugs: None Current Medications Current Medications Current Medications Cefazolin Sodium/ Dextrose 50 ml @ 100 mls/hr 1X PREOP PRN IV PRIOR TO PROCEDURE; Start 12/16/18 at 06:00; Stop 12/16/18 at 18:00 Ondansetron HCl (Zofran) 4 mg PRN Q6HRS PRN IV NAUSEA/VOMITING; Start 12/16/18 at 07:00; Stop 12/17/18 at 06:59 Fentanyl Citrate (Fentanyl 2ml Vial) 25 mcg PRN Q5MIN PRN IV MILD PAIN 1-3; Start 12/16/18 at 07:00; Stop 12/17/18 at 06:59 Fentanyl Citrate (Fentanyl 2ml Vial) 50 mcg PRN Q5MIN PRN IV MODERATE TO SEVERE PAIN; Start 12/16/18 at 07:00; Stop 12/17/18 at 06:59 Morphine Sulfate (Morphine Sulfate) 1 mg PRN Q10MIN PRN IV SEVERE PAIN 7-10; Start 12/16/18 at 07:00; Stop 12/17/18 at 06:59 Ringer's Solution 1,000 ml @ 30 mls/hr Q24H IV ; Start 12/16/18 at 07:00; Stop 12/16/18 at 18:59 Lidocaine HCl (Xylocaine-Mpf 1% 2ml Vial) 2 ml PRN 1X PRN ID PRIOR TO IV START; Start 12/16/18 at 07:00; Stop 12/17/18 at 06:59 Hydromorphone HCl (Dilaudid) 0.5 mg PRN Q10MIN PRN IV SEV PAIN, Second choice; Start 12/16/18 at 07:00; Stop 12/17/18 at 06:59 Prochlorperazine Edisylate (Compazine) 5 mg PACU PRN PRN IV NAUSEA, MRX1; Start 12/16/18 at 07:00; Stop 12/17/18 at 06:59 Active Scripts Active Reported Lovastatin 10 Mg Tablet 10 Mg PO HS Lisinopril 5 Mg Tablet 5 Mg PO DAILY Levothyroxine Sodium 125 Mcg Tablet 125 Mcg PO DAILYAC Gabapentin (Gabapentin) 300 Mg Capsule 300 Mg PO TID Levemir (Insulin Detemir) 100 Unit/1 Ml Vial 15 Unit SQ HS Humalog (Insulin Lispro) 100 Unit/1 Ml Vial 8 Unit SQ TIDBFRMEAL Allergies Allergies: Coded Allergies: No Known Drug Allergies (Unverified , 12/16/18) ROS General: No: Chills, Night Sweats, Fatigue, Malaise, Appetite, Other PSYCHOLOGICAL ROS: No: Anxiety, Behavioral Disorder, Concentration difficultie, Decreased libido, Depression, Disorientation, Hallucinations, Hostility, Irritablity, Memory difficulties, Mood Swings, Obsessive thoughts, Physical abuse, Sexual abuse, Sleep disturbances, Suicidal ideation, Other Eyes: No Blurry vision, No Decreased vision, No Double vision, No Dry eyes, No Excessive tearing, No Eye Pain, No Itchy Eyes, No Loss of vision, No Photophobia, No Scotomata, No Uses contacts, No Uses glasses, No Other HEENT: No: Heacaches, Visual Changes, Hearing change, Nasal congestion, Nasal discharge, Oral lesions, Sinus pain, Sore Throat, Epistaxis, Sneezing, Snoring, Tinnitus, Vertigo, Vocal changes, Other ALLERGY AND IMMUNOLOGY: No: Hives, Insect Bite Sensitivity, Itchy/Watery Eyes, Nasal Congestion, Post Nasal Drip, Seasonal Allergies, Other Hematological and Lymphatic: No: Bleeding Problems, Blood Clots, Blood Transfusions, Brusing, Night Sweats, Pallor, Swollen Lymph Nodes, Other ENDOCRINE: No: Breast Changes, Galactorrhea, Hair Pattern Changes, Hot Flashes, Malaise/lethargy, Mood Swings, Palpitations, Polydipsia/polyuria, Skin Changes, Temperature Intolerance, Unexpected Weight Changes, Other Breast: No New/Changing Breast Lumps, No Nipple changes, No Nipple discharge, No Other Respiratory: No: Cough, Hemoptysis, Orthopnea, Pleuritic Pain, Shortness of breath, SOB with excertion, Sputum Changes, Stridor, Tachypnea, Wheezing, Other Cardiovascular: No Chest Pain, No Palpitations, No Orthopnea, No Paroxysmal Noc. Dyspnea, No Edema, No Lt Headedness, No Other Gastrointestinal: No Nausea, No Vomiting, No Abdominal Pain, No Diarrhea, No Constipation, No Melena, No Hematochezia, No Other Genitourinary: No Dysuria, No Frequency, No Incontinence, No Hematuria, No Retention, No Discharge, No Urgency, No Pain, No Flank Pain, No Other, No , No , No , No , No , No , No Musculoskeletal: No Gait Disturbance, No Joint Pain, No Joint Stiffness, No Joint Swelling, No Muscle Pain, No Muscular Weakness, No Pain In:, No Swelling In:, No Other Neurological: No Behavorial Changes, No Bowel/Bladder ControlChng, No Confusion, No Dizziness, No Gait Disturbance, No Headaches, No Impaired Coord/balance, No Memory Loss, No Numbness/Tingling, No Seizures, No Speech Problems, No Tremors, No Visual Changes, No Weakness, No Other Skin: No Dry Skin, No Eczema, No Hair Changes, No Lumps, No Mole Changes, No Mottling, No Nail Changes, No Pruritus, No Rash, No Skin Lesion Changes, No Other, No Acne Physical Exam General: Alert, Oriented X3, Cooperative, No acute distress HEENT: Atraumatic, PERRLA, EOMI, Mucous membr. moist/pink Lungs: Clear to auscultation, Normal air movement Heart: S1S2, RRR, no thrills, no rubs, no gallops, no murmurs Abdomen: Normal bowel sounds, Soft, No tenderness, No hepatosplenomegaly, No masses Rectal Exam: not examined Extremities: No clubbing, No cyanosis, No edema, Normal pulses, Other (left 2nd toe swelling, discharge from ulcer) Skin: No rashes, No breakdown, No significant lesion Neuro: Normal gait, Normal speech, Strength at 5/5 X4 ext, Normal tone, Sensation intact, Cranial nerves 3-12 NL, Reflexes 2+ Psych/Mental Status: Mental status NL, Mood NL Images Images Left foot XR - 2nd toe soft tissue swelling VTE Prophylaxis Ordered VTE Prophylaxis Devices: No VTE Pharmacological Prophylaxi: No Assessment/Plan Assessment/Plan A/P: Left 2nd toe abscess/osteomyelitis - no further testing prior to surgery, planned amputation today. On clindamycin DM2 - took 15u levemir last night. 2u lispro now for glucose > 150 HTN - home lisinopril on hold this morning BPH - treated Hypothyroidism - on levothyroxine No further testing required prior to planned surgery ALEX RIGGS MD Dec 16, 2018 12:21
[2018-12-16 12:29] LABS: BASO # 0.1 x10^3/uL (0.0-0.2); BASO % 1 % (0-3); EOS # 0.2 x10^3/uL (0.0-0.7); EOS % 2 % (0-3); HEMATOCRIT 41.1 % (39.0-53.0); HEMOGLOBIN 14.1 g/dL (13.0-17.5); LYMPH # 1.9 x10^3/uL (1.0-4.8); LYMPH % 17 % (24-48); MEAN CORPUSCULAR HEMOGLOBIN 32 pg (25-35); MEAN CORPUSCULAR HGB CONC 34 g/dL (31-37); MEAN CORPUSCULAR VOLUME 94 fL (79-100); MONO # 0.8 x10^3/uL (0.0-1.1); MONO % 7 % (0-9); NEUT # 8.1 x10^3/uL (1.8-7.7); NEUT % 73 % (31-73); PLATELET COUNT 207 x10^3/uL (140-400); RED BLOOD COUNT 4.38 x10^6/uL (4.30-5.70); RED CELL DISTRIBUTION WIDTH 13.2 % (11.5-14.5); WHITE BLOOD COUNT 11.1 x10^3/uL (4.0-11.0)
[2018-12-16] MEDS ORDERED: ONDANSETRON PF 4 MG/2 ML VIAL. ONE (12:29)
[2018-12-16] MEDS ORDERED: LIDOCAINE 2% PF 5 ML VIAL. ONE (12:29)
[2018-12-16] MEDS ORDERED: PROPOFOL 20 ML IV ONE (12:29)
[2018-12-16] MEDS ORDERED: fentaNYL PF VIAL 100 MCG/2 ML VIAL ONE (12:30)
[2018-12-16 12:49] LABS: PROTHROMBIN TIME PATIENT 12.1 SEC (11.7-14.0)
[2018-12-16 12:50] LABS: CALCIUM 9.6 mg/dL (8.5-10.1); CREATININE 1.2 mg/dL (0.7-1.3); GFR 62.6; POTASSIUM 4.6 mmol/L (3.5-5.1)
[2018-12-16 12:55] LABS: ALBUMIN 4.3 g/dL (3.4-5.0); ALBUMIN/GLOBULIN RATIO 1.2 (1.0-1.7); TOTAL BILIRUBIN 0.5 mg/dL (0.2-1.0); TOTAL PROTEIN 7.8 g/dL (6.4-8.2)
[2018-12-16] MEDS ORDERED: BUPIVACAINE MPF 0.5% 30 ML VIAL. ONE (12:56)
[2018-12-16] MEDS ORDERED: LIDOCAINE 1% 20 ML VIAL. ONE (12:56)
[2018-12-16] MEDS ORDERED: POVIDONE-IODINE 10% TOPICAL OINTMENT 28GM TUBE. TP ONE (12:56)
[2018-12-16] MEDS ORDERED: ceFAZolin 2GM PREMIX 2 GM/50 ML BAG IV ONE (13:00)
--- NOTE | 2018-12-16 14:21 | DISCH ---
DISCHARGE INSTRUCTIONS Condition on Discharge Condition on Discharge: Stable Activity After Discharge Activity Instructions for Disc: Activity as tolerated, Other, see below (Mi nimal weight bearing left lower extremity in forefoot offloading surgical shoe) Bathing Instructions: Shower-keep dressing dry Lifting Instructions after Dis: No heavy lifting Driving Instructions after Dis: Do not drive Weight Bearing Status after Di: As tolerated, Other, see below (Minimal weight bearing left lower extremity in forefoot offloading surgical shoe) Diet after Discharge Diet after Discharge: Diabetic No Calorie Level Wound Incision Care Wound/Incision Care: Keep wound/cast CDI, Keep wound elevated, No wound care needed Contacting the after DC Call your doctor for: [phone] if any issue Follow-Up Follow up with: Dr. Ferrara at Clinic on 12/21/18 at 1:00pm Treatment/Equipment after DC Adaptive Equipment Issued: DENI Tavarez DPM Dec 16, 2018 14:21
--- NOTE | 2018-12-16 14:29 | PDOC4 ---
OPERATIVE NOTE: Post-Op Note Date of surgery: 12/16/18 Surgeon: Dr. Deni Rodrigez DPM Pre-op Diagnosis: Ulcer with osteomyelitis, left foot 2nd digit Post-op diagnosis: Same as Above Procedure: Partial amputation, left foot 2nd digit EBL: 5ml Complications: None Hemostasis: Left ankle tourniquet set at 250mmHg for 6 mins. Patient tolerated the procedure and anesthesia well. Patient transferred to PACU with vital signs stable and in stable condition with vascular status intact to the left foot. Patient to be minimal WBAT in a forefoot offloading surgical shoe to the left foot till followup in clinic. Patient to followup in clinic on Thursday12/21/18 at 1pm. DENI RODRIGEZ DPM Dec 16, 2018 14:28
[2018-12-16 14:40] VITALS: BP 109/72
--- NOTE | 2018-12-16 16:54 | RAD ---
Examination: FOOT LEFT 3V History: Postoperative amputation of the left second digit Comparison/Correlation: None Findings: Total 3 images of the left foot were obtained. Amputation of the second digit middle and distal phalanges noted. Partial amputation of the distal epiphysis of the proximal phalanx appears be present as well. Overlying bandages may limit detection for fine detail. Degenerative changes of the midfoot consistent with age noted. Very small calcaneal spurs present. Impression: Amputation of the second digit is evident from the distal epiphysis of the proximal phalanx and more distally. No retained foreign body. Electronically signed by: Shadi Snowden MD (12/16/2018 4:52 PM) [facility] oral
--- NOTE | 2018-12-20 12:42 | OP ---
DATE OF SURGERY: 12/16/2018 PREOPERATIVE DIAGNOSIS: Ulceration, left second digit with osteomyelitis, left second digit. POSTOPERATIVE DIAGNOSIS: Ulceration, left second digit with osteomyelitis, left second digit. PROCEDURE PERFORMED: Partial amputation of the left second digit. SURGEON: Deni Rodrigez DPM HEMOSTASIS: Left ankle tourniquet at 250 mmHg for 6 minutes. ANESTHESIA: IV MAC sedation with local anesthetic in a digital block manner at the left second digit. INDICATIONS: The patient is a 58-year-old male who was seen in clinic for ulceration of the left second digit. The patient had the ulceration for more than a month. The patient had been changing bandages and was in an offloading surgical shoe. The patient had ulceration, nonhealing. The patient with diabetes also. The patient was sent for an MRI, which indicated probable osteomyelitis of the left second digit distal phalanx. The patient was then referred to [facility] for TCOMs and further assessment. The patient also was referred to ID and was sent to primary care physician. Discussed in detail with the patient about possible amputation versus IV antibiotics. The patient discussed with his family as well as primary care physician and [facility] and decision was made to do a partial amputation of the left second digit to get rid of the infected bone. We discussed in detail with the patient, the procedure, its risks, benefits, and complications including delayed healing, nonhealing, need for further surgery, further infection, chronic regional pain syndrome, recurrence, numbness, tingling, burning, loss of sensation, blood clots to the leg, blood clots to the lung, lack of toe purchase. All questions were answered in detail with the patient and no guarantees were made. The patient understands and signed the consent freely. The consent was placed in the chart. DESCRIPTION OF PROCEDURE: The patient was transferred to the operating room via cart and placed on the operating room table in a supine position. After verification of the patient, procedure and the side, a well-padded ankle tourniquet was placed over the left ankle. IV sedation was administered by Anesthesia and the local anesthetic block was performed to the left second digit consisting of 1:1 mixture of 1% lidocaine plain and 0.5% Marcaine plain, 10 mL total. Next, the left foot was prepped and draped in the usual aseptic manner. The left foot was exsanguinated using gravity exsanguination and the left ankle tourniquet was inflated to 250 mmHg. Attention was then directed to the left second digit where a fishmouth vertical incision was made along the PIPJ. The digit was disarticulated at the proximal interphalangeal joint of the left second digit and the resected second digit was sent to pathology lab. Using a sagittal saw, the head of the proximal phalanx was resected as a clearance fragment, which was also sent separately to the pathology lab. The site was irrigated using 1 liter of sterile saline solution. Prior to the irrigation, preirrigation aerobic and anaerobic cultures were made from the amputation site. After the irrigation again, another set of post-irrigation aerobic and anaerobic cultures were taken. The tourniquet was released with bleeding noted to the second digit and perfusion noted to all the other digits of the left foot. There was no profuse bleeding with no open vessels, which needed to be tied. The surgical site was cleaned of all excessive tendon, which was resected out and all nonviable tissue. Next, the site was irrigated again and the amputation site was sutured together using 3-0 nylon in a horizontal mattress as well as simple suture technique with good incision at the amputation site. The bandage was applied with Betadine ointment, Adaptic, 4 x 4 gauze and conform bandage with an Braeden bandage to the left foot. The tourniquet was previously deflated after only 6 minutes. Good perfusion was noted to all the digits. The patient tolerated the anesthesia and the procedure well and was transported to the PACU in a stable condition with vascular status intact to the left foot. The patient's postop instructions were placed in the chart. The patient already has an offloading forefoot surgical shoe which the patient is to minimal weight bear as tolerated. The patient to follow up in clinic in 5 days or sooner if any issues. The patient was given postop pain medication and the patient to follow up in clinic. DENI RODRIGEZ DPM DR: KENNA/stacie JOB#: [id number] / [id number]
--- NOTE | 2018-12-20 17:06 | PATHOLOGY ---
[facility] Accession Number: [id number] . 01 Material submitted: . PART A: toe - SECOND DIGIT LEFT FOOT. Modifiers: second, left PART B: toe - CLEARANCE FRAGMENT SECOND DIGIT LEFT FOOT. Modifiers: second, left . 01 Clinical history: . None provided. . 02 Diagnosis: A. Second digit left foot amputation: - Deep ulceration and acute inflammation of skin of distal toe with underlying fibrosis and focal cortical destruction of distal phalyngeal bone. . B. Segment of bone and cartilage with focal attached fibrous tissue, clearance fragment second digit left foot: - Negative for acute osteomyelitis. . (JPM:johanna; 12/20/2018) [facility] 12/20/2018 1601 Local . 02 Electronically signed: . Brett Jones MD, Pathologist NPI- [id number] . 01 Gross description: . A. Received in formalin labeled "Brett Mitchell, second digit left foot" is a toe amputation specimen measuring 4.0 x 2.3 x 2.2 cm. The proximal aspect has a concave cartilaginous bone disarticulation and a smooth grossly viable skin and soft tissue margin, which is inked black. The distal aspect of the specimen displays an irregular jackson-white toenail measuring 1.3 x 1.0 x 0.3 cm. Just inferior to the toenails an ulcerated lesion measuring 1.5 x 1.4 x 0.2 cm. The lesion is located 1.7 cm to the closest skin and soft tissue margin and 2.9 cm to the bone disarticulation. A termite control representative cross section of the specimen is submitted in cassettes A1-A2 following decalcification. . B. Received in formalin labeled "Brett Mitchell, clearance fragment second digit left foot" is a fragment of jackson-white bone measuring 1.3 x 0.8 x 0.6 cm. One aspect displays a convex cartilaginous covered articular surface and the opposite aspect displays a smooth surgical margin, inked black. The specimen is serially sectioned and submitted entirely in cassette B1 following decalcification. [place] [place] [facility] 12/16/2018 1908 Local . 02 Pathologist provided ICD-10: L97.529, M89.8X7 . 02 CPT . 781676, 772863, 232508, 776740 Specimen Comment: A courtesy copy of this report has been sent to Specimen Comment: [phone], . Specimen Comment: Report sent to / DR DILLARD Performed at: 01 [facility] [address], [place] [id number] MD Aiden Ramirez MD Phone: [phone] Performed at: 02 [facility] [address] [place], [place] [id number] MD Brett Jones MD Phone: [phone]
== END 2018-12-16 15:00 | disposition home or self-care (01) ==
LOC: SURG 11:30
PROVIDERS: ATTEND Podiatrist
DX: E11.621 Type 2 diabetes mellitus with foot ulcer (principal); M86.172 Other acute osteomyelitis, left ankle and foot; L03.116 Cellulitis of left lower limb; E11.40 Type 2 diabetes mellitus with diabetic neuropathy, unspecified; B35.1 Tinea unguium; I10 Essential (primary) hypertension; E78.00 Pure hypercholesterolemia, unspecified; E66.3 Overweight; Z68.27 Body mass index [BMI] 27.0-27.9, adult; Z79.84 Long term (current) use of oral hypoglycemic drugs; Z87.891 Personal history of nicotine dependence; Z90.49 Acquired absence of other specified parts of digestive tract; Z79.899 Other long term (current) drug therapy; Z79.01 Long term (current) use of anticoagulants
CPT/HCPCS: 28825; 36415; 73630; 80053; 82962; 85025; 85610; 87071; 87075; 88304; 88305; 88311; A7015; J0696; J2001; J2405; J2704; J3010; J3490

== ENCOUNTER 2020-08-14 06:03 | Emergency (ER) | payer BC ==
[~2020-08-14] VITALS: Ht 188 cm; Wt 95.5 kg
[~2020-08-14 06:03] MED LIST changes: -HYDROmorphone 2 MG/ML VIAL IV PRN; -IV RINGERS,LACTATED 1000ML 1,000 ML IV SCH; -LIDOCAINE 1% PF 2 ML VIAL. ID PRN; -LISI-338 PO; +LISI-517 PO; -MORPHINE SULFATE 2 MG/ML VIAL. IV PRN; -ONDANSETRON PF 4 MG/2 ML VIAL. IV PRN; -PROCHLORPERAZINE 10 MG/2 ML VIAL. IV PRN; -fentaNYL PF VIAL 100 MCG/2 ML VIAL IV PRN
[2020-08-14] MEDS ORDERED: ONDANSETRON PF 4 MG/2 ML VIAL. IVP ONE (07:00)
[2020-08-14] MEDS ORDERED: MORPHINE SULFATE 4 MG/ML VIAL. IV ONE (07:00)
--- NOTE | 2020-08-14 07:02 | ED.ADGEN ---
Past Medical History Past Medical History: Diabetes-Type I, High Cholesterol, Hypertension Past Surgical History: Cholecystectomy Additional Past Surgical Histo: scrotal sx Smoking Status: Former Smoker Alcohol Use: None Drug Use: None General Adult EDM: Chief Complaint: NAUSEA/VOMITING/DIARRHEA HPI: HPI: Patient is a 60-year-old male who arrives to the emergency department complaining of multiple episodes of nausea and vomiting with diarrhea and now what is day 3. Patient reports he began feeling ill on Thursday and this is progressively worsened. Patient describes mid abdominal discomfort in addition to lower abdominal discomfort at this time. Despite his illness the patient denies any sick contacts. He further denies any history of fever or chest pain. Additionally denies any shortness of air. He further denies any blood in his stool. He is awake, alert and nontoxic-appearing Review of Systems: Review of Systems: Constitutional: Denies fever or chills. [] Eyes: Denies change in visual acuity. [] HENT: Denies nasal congestion or sore throat. [] Respiratory: Denies cough or shortness of breath. [] Cardiovascular: Denies chest pain or edema. [] GI: Reports abdominal pain, nausea, vomiting, diarrhea. [] : Denies dysuria. [] Musculoskeletal: Denies back pain or joint pain. [] Integument: Denies rash. [] Neurologic: Denies headache, focal weakness or sensory changes. [] Endocrine: Denies polyuria or polydipsia. [] Lymphatic: Denies swollen glands. [] Psychiatric: Denies depression or anxiety. [] Current Medications: Current Medications Medications (Trade) Dose Ordered Sig/Babar Start Time Stop Time Status Last Admin Dose Admin Morphine Sulfate (Morphine Sulfate) 4 mg 1X ONCE 08/14/20 07:00 08/14/20 07:08 DC 08/14/20 07:14 4 MG Ondansetron HCl (Zofran) 4 mg 1X ONCE 08/14/20 07:00 08/14/20 07:08 DC 08/14/20 07:14 4 MG Sodium Chloride 1,000 ml @ 1,000 mls/hr 1X ONCE 08/14/20 08:45 08/14/20 09:44 08/14/20 08:44 1,000 MLS/HR Allergies: Allergies: Allergies Coded Allergies Type Severity Reaction Last Updated Verified No Known Drug Allergies 12/16/18 No Physical Exam: PE: Constitutional: Uncomfortable appearing. Well developed, well nourished, no acute distress, non-toxic appearance. [] HENT: Normocephalic, atraumatic, bilateral external ears normal, oropharynx moist, no oral exudates, nose normal. [] Eyes: PERRLA, EOMI, conjunctiva normal, no discharge. [] Neck: Normal range of motion, no tenderness, supple, no stridor. [] Cardiovascular:Heart rate regular rhythm, no murmur [] Lungs & Thorax: Bilateral breath sounds clear to auscultation [] Abdomen: Mild abdominal tenderness without rebound or guarding. Bowel sounds normal, soft, no masses, no pulsatile masses. [] Skin: Warm, dry, no erythema, no rash. [] Back: No tenderness, no CVA tenderness. [] Extremities: No tenderness, no cyanosis, no clubbing, ROM intact, no edema. [] Neurologic: Alert and oriented X 3, normal motor function, normal sensory function, no focal deficits noted. [] Psychologic: Affect normal, judgement normal, mood normal. [] Current Patient Data: Labs: Laboratory Tests Test 08/14/20 07:05 White Blood Count 14.0 x10^3/uL (4.0-11.0) H Red Blood Count 4.42 x10^6/uL (4.30-5.70) Hemoglobin 14.3 g/dL (13.0-17.5) Hematocrit 40.9 % (39.0-53.0) Mean Corpuscular Volume 93 fL (79-100) Mean Corpuscular Hemoglobin 32 pg (25-35) Mean Corpuscular Hemoglobin Concent 35 g/dL (31-37) Red Cell Distribution Width 13.3 % (11.5-14.5) Platelet Count 249 x10^3/uL (140-400) Neutrophils (%) (Auto) 88 % (31-73) H Lymphocytes (%) (Auto) 6 % (24-48) L Monocytes (%) (Auto) 6 % (0-9) Eosinophils (%) (Auto) 0 % (0-3) Basophils (%) (Auto) 0 % (0-3) Neutrophils # (Auto) 12.3 x10^3/uL (1.8-7.7) H Lymphocytes # (Auto) 0.8 x10^3/uL (1.0-4.8) L Monocytes # (Auto) 0.9 x10^3/uL (0.0-1.1) Eosinophils # (Auto) 0.0 x10^3/uL (0.0-0.7) Basophils # (Auto) 0.1 x10^3/uL (0.0-0.2) Segmented Neutrophils % 91 % (35-66) H Band Neutrophils % 3 % (0-9) Lymphocytes % 2 % (24-48) L Monocytes % 4 % (0-10) Platelet Estimate Adequate (ADEQUATE) Sodium Level 142 mmol/L (136-145) Potassium Level 3.7 mmol/L (3.5-5.1) Chloride Level 102 mmol/L (98-107) Carbon Dioxide Level 21 mmol/L (21-32) Anion Gap 19 (6-14) H Blood Urea Nitrogen 31 mg/dL (8-26) H Creatinine 1.7 mg/dL (0.7-1.3) H Estimated GFR (Cockcroft-Gault) 41.6 BUN/Creatinine Ratio 18 (6-20) Glucose Level 247 mg/dL (70-99) H Calcium Level 9.5 mg/dL (8.5-10.1) Total Bilirubin 0.6 mg/dL (0.2-1.0) Aspartate Amino Transferase (AST) 46 U/L (15-37) H Alanine Aminotransferase (ALT) 30 U/L (16-63) Alkaline Phosphatase 65 U/L (46-116) Troponin I Quantitative < 0.017 ng/mL (0.000-0.055) Total Protein 7.2 g/dL (6.4-8.2) Albumin 4.5 g/dL (3.4-5.0) Albumin/Globulin Ratio 1.7 (1.0-1.7) Lipase 67 U/L (73-393) L Laboratory Tests 08/14/20 07:05 Laboratory Tests 08/14/20 07:05 Vital Signs: Vital Signs Date Time Temp Pulse Resp B/P (MAP) Pulse Ox O2 Delivery O2 Flow Rate FiO2 08/14/20 08:07 67 130/60 (83) 97 Room Air 08/14/20 07:14 24 08/14/20 06:10 98.1 98.1 EKG: EKG: EKG was obtained at 8:45 AM and revealed a normal sinus rhythm with a ventricular rate of 71 bpm. There are no acute ST/T wave changes to denote ischemia. This is an otherwise normal-appearing EKG. [] Heart Score: C/O Chest Pain: No Risk Factors: Risk Factors: DM, Current or recent (<one month) smoker, HTN, HLP, family history of CAD, obesity. Risk Scores: Score 0 - 3: 2.5% MACE over next 6 weeks - Discharge Home Score 4 - 6: 20.3% MACE over next 6 weeks - Admit for Clinical Observation Score 7 - 10: 72.7% MACE over next 6 weeks - Early Invasive Strategies Radiology/Procedures: Radiology/Procedures: [] Impression: [facility] [address] [place] [address] IMAGING REPORT Signed PATIENT: TOSHIA CAROLINA LACCOUNT: [id number] : 1960 LOCATION: ER AGE: 60 SEX: M EXAM STATUS: REG ER ORD. PHYSICIAN: DAV KUMAR DO REASON: Abdominal pain, vomiting/diarrhea PROCEDURE: CT ABDOMEN PELVIS WO CONTRAST EXAMINATION: CT abdomen and pelvis without IV contrast. INDICATION:60 years, Male, abdominal pain, vomiting and diarrhea. TECHNIQUE: Axial CT images of the abdomen and pelvis were obtained. Coronal and sagittal reformatted performed. COMPARISON: 07/30/2018. Exposure: One or more of the following individualized dose reduction techniques were utilized for this examination: 1. Automated exposure control 2. Adjustment of the mA and/or kV according to patient size 3. Use of iterative reconstruction technique. FINDINGS: LOWER CHEST: Left basilar subsegmental atelectasis. ABDOMEN/PELVIS: Within limitation of noncontrast exam, Calcified granulomas in the right hepatic lobe. No suspicious focal hepatic lesion. Cholecystectomy. No biliary ductal dilation and unremarkable spleen. Atrophic pancreas with fat infiltration. Nodular thickening of the left adrenal gland without discrete nodule. Right adrenal gland is normal. No hydronephrosis or nephrolithiasis in either kidney. Bilateral perinephric fat stranding. Distal esophageal wall thickening, may relate to reflux esophagitis. Uncomplicated duodenal diverticulum. No bowel obstruction or wall thickening. Few colonic diverticulosis without diverticulitis. Normal appendix. Mild aortoiliac atherosclerotic calcifications without or dilation. No pneumoperitoneum or ascites. No lymphadenopathy in the abdomen or pelvis by size criteria. Unremarkable bladder. Punctate calcifications within the prostate. No suspicious pelvic masses. MUSCULOSKELETAL: No acute osseous process. Severe degenerative changes at L5-S1. Schmorl's nodes in the lower thoracic spine. IMPRESSION: Within limitation of noncontrast exam, 1. No acute abnormality in the abdomen or pelvis. 2. Other chronic/incidental findings, as described above. Electronically signed by: Ellie Angulo MD (08/14/2020 8:28 AM) [id number] DICTATED and SIGNED BY: ELLIE ANGULO MD DATE: 08/14/20 [id number] Course & Med Decision Making: Course & Med Decision Making Pertinent Labs and Imaging studies reviewed. (See chart for details) [] Dragon Disclaimer: Shayy Disclaimer: This electronic medical record was generated, in whole or in part, using a voice recognition dictation system. Departure Departure Impression: Primary Impression: Acute gastroenteritis Additional Impressions: Abdominal pain Hyperglycemia Renal insufficiency Disposition: 01 HOME / SELF CARE / HOMELESS Condition: STABLE Referrals: KIMI DILLARD MD (PCP) Patient Instructions: Chronic Renal Insufficiency, Hyperglycemia, Viral Ga stroenteritis Scripts Ondansetron Hcl (ZOFRAN) 4 Mg Tablet 1 TAB PO PRN Q6-8HRS for nausea, #12 TAB Prov: DAV KUMAR DO 08/14/20 Problem Qualifiers DAV KUMAR DO Aug 14, 2020 07:01
[2020-08-14 07:18] LABS: BASO # 0.1 x10^3/uL (0.0-0.2); BASO % 0 % (0-3); EOS % 0 % (0-3); HEMATOCRIT 40.9 % (39.0-53.0); HEMOGLOBIN 14.3 g/dL (13.0-17.5); LYMPH # 0.8 x10^3/uL (1.0-4.8); LYMPH % 6 % (24-48); MEAN CORPUSCULAR HEMOGLOBIN 32 pg (25-35); MEAN CORPUSCULAR HGB CONC 35 g/dL (31-37); MEAN CORPUSCULAR VOLUME 93 fL (79-100); MONO # 0.9 x10^3/uL (0.0-1.1); MONO % 6 % (0-9); NEUT # 12.3 x10^3/uL (1.8-7.7); NEUT % 88 % (31-73); PLATELET COUNT 249 x10^3/uL (140-400); RED BLOOD COUNT 4.42 x10^6/uL (4.30-5.70); RED CELL DISTRIBUTION WIDTH 13.3 % (11.5-14.5)
[2020-08-14 07:33] LABS: CALCIUM 9.5 mg/dL (8.5-10.1); CREATININE 1.7 mg/dL (0.7-1.3); GFR 41.6; POTASSIUM 3.7 mmol/L (3.5-5.1)
[2020-08-14 07:40] LABS: ALBUMIN 4.5 g/dL (3.4-5.0); ALBUMIN/GLOBULIN RATIO 1.7 (1.0-1.7); TOTAL BILIRUBIN 0.6 mg/dL (0.2-1.0); TOTAL PROTEIN 7.2 g/dL (6.4-8.2)
--- NOTE | 2020-08-14 08:30 | RAD ---
EXAMINATION: CT abdomen and pelvis without IV contrast. INDICATION:60 years, Male, abdominal pain, vomiting and diarrhea. TECHNIQUE: Axial CT images of the abdomen and pelvis were obtained. Coronal and sagittal reformatted performed. COMPARISON: 07/30/2018. Exposure: One or more of the following individualized dose reduction techniques were utilized for thi s examination: 1. Automated exposure control 2. Adjustment of the mA and/or kV according to patient size 3. Use of iterative reconstruction technique. FINDINGS: LOWER CHEST: Left basilar subsegmental atelectasis. ABDOMEN/PELVIS: Within limitation of noncontrast exam, Calcified granulomas in the right hepatic lobe. No suspicious focal hepatic lesion. Cholecystectomy. No biliary ductal dilation and unremarkable spleen. Atrophic pancreas with fat infiltration. Nodular thickening of the left adrenal gland without discrete nodule. Right adrenal gland is normal. No hydro nephrosis or nephrolithiasis in either kidney. Bilateral perinephric fat stranding. Distal esophageal wall thickening, may relate to reflux esophagitis. Uncomplicated duodenal diverticu lum. No bowel obstruction or wall thickening. Few colonic diverticulosis without diverticulitis. Norm al appendix. Mild aortoiliac atherosclerotic calcifications without or dilation. No pneumoperitoneum or ascites. No lymphadenopathy in the abdomen or pelvis by size criteria. Unremarkable bladder. Punct ate calcifications within the prostate. No suspicious pelvic masses. MUSCULOSKELETAL: No acute osseous process. Severe degenerative changes at L5-S1. Schmorl's nodes in the lower thoracic spine. IMPRESSION: Within limitation of noncontrast exam, 1. No acute abnormality in the abdomen or pelvis. 2. Other chronic/incidental findings, as described above. Electronically signed by: Conner Angulo MD (08/14/2020 8:28 AM) [id number]
[2020-08-14] MEDS ORDERED: IV NORMAL SALINE 1000ML BAG 1,000 ML IV ONE (08:45)
[2020-08-14 09:08] LABS: % BANDS 3 % (0-9); % LYMPHS 2 % (24-48); % MONOS 4 % (0-10); % SEGS 91 % (35-66)
[2020-08-14 09:09] LABS: PLT ESTIMATE ADEQUATE (ADEQUATE)
[2020-08-14 09:37] VITALS: BP 146/67
[2020-08-14] MEDS ORDERED: ONDA4TAB7 PO (09:37)
--- NOTE | 2020-08-14 18:40 | EKG ---
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
[2020-08-15] MEDS ORDERED: LISI10TA16 PO (12:37)
[2020-08-17] MEDS ORDERED: INSU100V35 SQ (10:06)
[2020-08-17] MEDS ORDERED: PANT40TA77 PO (10:06)
== END 2020-08-14 10:05 | disposition home or self-care (01) ==
LOC: ER 06:03
DX: K52.9 Noninfective gastroenteritis and colitis, unspecified (principal); E10.65 Type 1 diabetes mellitus with hyperglycemia; E78.00 Pure hypercholesterolemia, unspecified; I10 Essential (primary) hypertension; N28.9 Disorder of kidney and ureter, unspecified; Z87.891 Personal history of nicotine dependence; Z90.49 Acquired absence of other specified parts of digestive tract
CPT/HCPCS: 36415; 74176; 80053; 83690; 84484; 85007; 85025; 93005; 96361; 96374; 96375; 99285; J2270; J2405; J7030

== ENCOUNTER 2020-08-15 09:08 | Inpatient (IN) | payer BC ==
[~2020-08-15] VITALS: Ht 188 cm; Wt 89.0 kg
[~2020-08-15 09:08] MED LIST changes: +ONDA4TAB7 PO
--- NOTE | 2020-08-15 09:20 | PHYS DOC ---
Past Medical History Past Medical History: Diabetes-Type I, High Cholesterol, Hypertension Past Surgical History: Cholecystectomy Additional Past Surgical Histo: scrotal sx Smoking Status: Former Smoker Alcohol Use: None Drug Use: None General Adult EDM: Chief Complaint: ABDOMINAL PAIN HPI: HPI: Patient is a 60 year [id number] male presents with a chief complaint of abdominal pain. 4 days ago patient's started to have diffuse abdominal pain associated with nausea vomiting and diarrhea. On exam patient's abdominal pain is diffuse. He denies any associated chest pain or shortness of breath. Patient was seen yesterday and underwent lab work and CT imaging. CT imaging showed no acute abnormalities. Patient states nausea and vomiting abdominal pain continue but diarrhea has seemed to resolve. Review of Systems: Review of Systems: Review of systems: Constitutional symptoms- No fever, no chills. Eyes- No Discharge, No Visual Loss Respiratory symptoms- No shortness of breath, No wheezing, No Dyspnea on Exertion Cardiovascular Systems; No chest pain, No Palpitations, No syncope Gastrointestinal symptoms: Positive abdominal pain, Positive nausea, Positive vomiting Positive diarrhea. Genitourinary symptoms: No dysuria. Musculoskeletal symptoms: No back pain No extremity pain. NEUROLOGICAL Symptoms: No headache, no generalized weakness; No focal Weakness Heart Score: C/O Chest Pain: N/A Risk Factors: Risk Factors: DM, Current or recent (<one month) smoker, HTN, HLP, family history of CAD, obesity. Risk Scores: Score 0 - 3: 2.5% MACE over next 6 weeks - Discharge Home Score 4 - 6: 20.3% MACE over next 6 weeks - Admit for Clinical Observation Score 7 - 10: 72.7% MACE over next 6 weeks - Early Invasive Strategies Allergies: Allergies: Allergies Coded Allergies Type Severity Reaction Last Updated Verified No Known Drug Allergies 12/16/18 No Physical Exam: PE: Constitutional: Well developed, well nourished, no acute distress, non-toxic appearance. [] HENT: Normocephalic, atraumatic, bilateral external ears normal, oropharynx moist, no oral exudates, nose normal. [] Eyes: PERRLA, EOMI, conjunctiva normal, no discharge. [] Neck: Normal range of motion, no tenderness, supple, no stridor. [] Cardiovascular:Heart rate regular rhythm, no murmur [] Lungs & Thorax: Bilateral breath sounds clear to auscultation [] Abdomen: Bowel sounds normal, soft, no tenderness, no masses, no pulsatile masses. [] Skin: Warm, dry, no erythema, no rash. [] Back: No tenderness, no CVA tenderness. [] Extremities: No tenderness, no cyanosis, no clubbing, ROM intact, no edema. [] Neurologic: Alert and oriented X 3, normal motor function, normal sensory function, no focal deficits noted. [] Psychologic: Affect normal, judgement normal, mood normal. [] EKG: EKG: [] Normal Sinus Rhythm Rate [address] ST depression No acute SD Performed at 0931 Radiology/Procedures: Radiology/Procedures: [] Course & Med Decision Making: Course & Med Decision Making Pertinent Labs and Imaging studies reviewed. (See chart for details) [] Patient was evaluated for chief complaint. Work-up consisted of laboratory analysis. Results reviewed and discussed with patient. CT imaging from yesterday reviewed no acute abnormalities. Patient's lipase today 461 yesterday 67. Treatment included morphine Zofran and IV fluids. Patient admitted to the hospitalist. Shayy Disclaimer: Shayy Disclaimer: This electronic medical record was generated, in whole or in part, using a voice recognition dictation system. Departure Departure Impression: Primary Impression: Abdominal pain Additional Impression: Acute pancreatitis Disposition: HOME / SELF CARE / HOMELESS Condition: STABLE Referrals: KIMI DILLARD MD (PCP) JENNIFER PAULINO DO Aug 15, 2020 09:20
[2020-08-15] MEDS ORDERED: MORPHINE SULFATE 4 MG/ML VIAL. IV ONE (09:30)
[2020-08-15] MEDS ORDERED: ONDANSETRON PF 4 MG/2 ML VIAL. IVP ONE (09:30)
[2020-08-15 09:35] LABS: BASO # 0.1 x10^3/uL (0.0-0.2); BASO % 1 % (0-3); EOS % 0 % (0-3); HEMATOCRIT 40.9 % (39.0-53.0); HEMOGLOBIN 14.5 g/dL (13.0-17.5); LYMPH # 2.6 x10^3/uL (1.0-4.8); LYMPH % 17 % (24-48); MEAN CORPUSCULAR HEMOGLOBIN 33 pg (25-35); MEAN CORPUSCULAR HGB CONC 35 g/dL (31-37); MEAN CORPUSCULAR VOLUME 93 fL (79-100); MONO # 1.5 x10^3/uL (0.0-1.1); MONO % 10 % (0-9); NEUT % 73 % (31-73); PLATELET COUNT 257 x10^3/uL (140-400); RED BLOOD COUNT 4.41 x10^6/uL (4.30-5.70); RED CELL DISTRIBUTION WIDTH 12.8 % (11.5-14.5); WHITE BLOOD COUNT 15.2 x10^3/uL (4.0-11.0)
[2020-08-15 09:42] LABS: CALCIUM 9.3 mg/dL (8.5-10.1); CREATININE 1.3 mg/dL (0.7-1.3); GFR 56.7; POTASSIUM 3.5 mmol/L (3.5-5.1)
[2020-08-15 09:48] LABS: ALBUMIN 4.5 g/dL (3.4-5.0); ALBUMIN/GLOBULIN RATIO 1.5 (1.0-1.7); TOTAL BILIRUBIN 0.7 mg/dL (0.2-1.0); TOTAL PROTEIN 7.5 g/dL (6.4-8.2)
[2020-08-15] MEDS ORDERED: IV NORMAL SALINE 1000ML BAG 1,000 ML IV ONE (10:15)
[2020-08-15] MEDS ORDERED: ONDANSETRON PF 4 MG/2 ML VIAL. IV PRN (10:45)
[2020-08-15] MEDS ORDERED: MORPHINE SULFATE 4 MG/ML VIAL. IV PRN (10:45)
[2020-08-15 11:15] VITALS: BP 149/79
--- NOTE | 2020-08-15 11:20 | RAD ---
XR CHEST 1V History: Reason: admitting. / Spl. Instructions: / History: Pain. Comparison: July 20, 2018 Findings: No consolidation or pleural effusion. Normal heart size. No pneumothorax. Impression: 1. No acute cardiopulmonary process. Electronically signed by: Marvin Nolasco DO (08/15/2020 11:18 AM) [id number]
--- NOTE | 2020-08-15 11:23 | RAD ---
XR ABDOMEN 2V History: Reason: ABD PAIN / Spl. Instructions: / History: Technique: Upright and supine views the abdomen. Comparison: CT August 14, 2020 Findings: Imaged lung bases are unremarkable. No pneumoperitoneum. Mildly prominent air-filled loops of small b owel within the mid abdomen, increased compared to prior CT. No significant air-fluid levels. Air and stool throughout the colon. Mild colonic stool burden. Surgical clips right upper quadrant. Impression: 1. Increased small bowel gas compared to prior, may relate to ileus or enteritis. If persistent clin ical concern, recommend follow-up. Electronically signed by: Marvin Nolasco DO (08/15/2020 11:21 AM) [id number]
[2020-08-15] MEDS ORDERED: POTASSIUM CL 40MEQ D5-0.45NACL 1,000 ML IV SCH (11:30)
--- NOTE | 2020-08-15 11:35 | PDOC2 ---
GI CONSULT Date of Service: DATE: 08/15/20 TIME: 11:25 Reason For Consult: abd pain HPI: HPI: 60 y/o male admitted through ER. Ill since Thursday w/ n/v, dull upper/mid abdominal ache, and diarrhea. Denies precipitating events. Had carry-out pizza from [employer] on Thursday. Not able to eat much - water, jello, pudding. Sometimes stays down, sometimes not. Pain is constant, sometimes worse after eating, no change w/ stooling. Diarrhea is less bothersome now - was watery and occurred a couple times per day. No reflux/heartburn, chronic/recurrent vomiting, dysphagia, hematemesis, chronic abd pain or diarrhea, constipation, hematochezia, melena, or weight loss. No previous EGD. Reports normal colonoscopy 2-3 years ago @ [facility]. S/p cholecystectomy (stones). Denies liver, pancreas, and PUD history. Reports good diabetic control. No routine use of NSAIDs. Had COVID vaccine. 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 PMH: PMH: HTN, HLD, DM, CKD, BPH, hypothyroidism toe amputation, cholecystectomy FH: Family History: No pertinent hx (denies GI cancers) Social History: Smoke: Quit ALCOHOL: other (some heavy use in the past, none for 20 years) Drugs: None ROS: GEN: Denies fevers, chills, sweats HEENT: Denies blurred vision, sore throat CV: Denies chest pain RESP: Denies shortness of air, cough GI: Per HPI : Denies hematuria, dysuria ENDO: Denies weight changes NEURO: Denies confusion, dizziness MSK: Denies weakness, joint pain/swelling SKIN: Denies jaundice, pruritus Vitals: Vitals: Vital Signs Date Time Temp Pulse Resp B/P (MAP) Pulse Ox O2 Delivery O2 Flow Rate FiO2 08/15/20 10:44 62 165/72 (103) 98 Room Air 08/15/20 09:30 22 08/15/20 09:15 97.9 97.9 Labs: Labs: Laboratory Tests Test 08/15/20 09:20 White Blood Count 15.2 x10^3/uL (4.0-11.0) Red Blood Count 4.41 x10^6/uL (4.30-5.70) Hemoglobin 14.5 g/dL (13.0-17.5) Hematocrit 40.9 % (39.0-53.0) Mean Corpuscular Volume 93 fL (79-100) Mean Corpuscular Hemoglobin 33 pg (25-35) Mean Corpuscular Hemoglobin Concent 35 g/dL (31-37) Red Cell Distribution Width 12.8 % (11.5-14.5) Platelet Count 257 x10^3/uL (140-400) Neutrophils (%) (Auto) 73 % (31-73) Lymphocytes (%) (Auto) 17 % (24-48) Monocytes (%) (Auto) 10 % (0-9) Eosinophils (%) (Auto) 0 % (0-3) Basophils (%) (Auto) 1 % (0-3) Neutrophils # (Auto) 11.0 x10^3/uL (1.8-7.7) Lymphocytes # (Auto) 2.6 x10^3/uL (1.0-4.8) Monocytes # (Auto) 1.5 x10^3/uL (0.0-1.1) Eosinophils # (Auto) 0.0 x10^3/uL (0.0-0.7) Basophils # (Auto) 0.1 x10^3/uL (0.0-0.2) Sodium Level 140 mmol/L (136-145) Potassium Level 3.5 mmol/L (3.5-5.1) Chloride Level 100 mmol/L (98-107) Carbon Dioxide Level 23 mmol/L (21-32) Anion Gap 17 (6-14) Blood Urea Nitrogen 29 mg/dL (8-26) Creatinine 1.3 mg/dL (0.7-1.3) Estimated GFR (Cockcroft-Gault) 56.7 BUN/Creatinine Ratio 22 (6-20) Glucose Level 191 mg/dL (70-99) Calcium Level 9.3 mg/dL (8.5-10.1) Total Bilirubin 0.7 mg/dL (0.2-1.0) Aspartate Amino Transf (AST/SGOT) 79 U/L (15-37) Alanine Aminotransferase (ALT/SGPT) 47 U/L (16-63) Alkaline Phosphatase 68 U/L (46-116) Troponin I Quantitative < 0.017 ng/mL (0.000-0.055) Total Protein 7.5 g/dL (6.4-8.2) Albumin 4.5 g/dL (3.4-5.0) Albumin/Globulin Ratio 1.5 (1.0-1.7) Amylase Level 125 U/L (25-115) Lipase 461 U/L (73-393) Allergies: Coded Allergies: No Known Drug Allergies (Unverified , 12/16/18) Medications: Current Medications Medications (Trade) Dose Ordered Sig/Babar Route PRN Reason Start Time Stop Time Status Last Admin Dose Admin Morphine Sulfate (Morphine Sulfate) 4 mg 1X ONCE IV 08/15/20 09:30 08/15/20 09:31 DC 08/15/20 09:30 Ondansetron HCl (Zofran) 4 mg 1X ONCE IVP 08/15/20 09:30 08/15/20 09:31 DC 08/15/20 09:30 Sodium Chloride 1,000 ml @ 1,000 mls/hr 1X ONCE IV 08/15/20 10:15 08/15/20 11:14 DC 08/15/20 10:18 Imaging: Imaging: CXR 08/15 Impression: 1. No acute cardiopulmonary process. KUB 08/[address] A/P 08/14 ABDOMEN/PELVIS: Within limitation of noncontrast exam, Calcified granulomas in the right hepatic lobe. No suspicious focal hepatic lesion. Cholecystectomy. No biliary ductal dilation and unremarkable spleen. Atrophic pancreas with fat infiltration. Nodular thickening of the left adrenal gland without discrete nodule. Right adrenal gland is normal. No hydronephrosis or nephrolithiasis in either kidney. Bilateral perinephric fat stranding. Distal esophageal wall thickening, may relate to reflux esophagitis. Uncomplicated duodenal diverticulum. No bowel obstruction or wall thickening. Few colonic diverticulosis without diverticulitis. Normal appendix. Mild aortoiliac atherosclerotic calcifications without or dilation. No pneumoperitoneum or ascites. No lymphadenopathy in the abdomen or pelvis by size criteria. Unremarkable bladder. Punctate calcifications within the prostate. No suspicious pelvic masses. MUSCULOSKELETAL: No acute osseous process. Severe degenerative changes at L5-S1. Schmorl's nodes in the lower thoracic spine. IMPRESSION: Within limitation of noncontrast exam, 1. No acute abnormality in the abdomen or pelvis. 2. Other chronic/incidental findings, as described above. PE: GEN: somewhat ill-appearing HEENT: Atraumatic, PERRL LUNGS: CTAB HEART: RRR ABD: quiet BS, soft, not particularly tender, epigastric hernia EXTREMITY: No edema SKIN: No rashes, no jaundice NEURO/PSYCH: A & O 3 A/P: A/P: N/v, abd pain, diarrhea Leukocytosis, mildly elevated lipase and AST Distal esophageal thickening on CT, heartburn w/ current illness CRC screen - UTD Diverticulosis (colon, duodenal) S/p cholecystectomy (no IOC) H/o alcohol - none for many years DM -- ?infectious - not clearly pancreatitis. Try clears, IV PPI, observe. Can consider outpt EGD for CT findings. JAGDISH TINSLEY Aug 15, 2020 11:35
[2020-08-15] MEDS: PANTOPRAZOLE IV PUSH 40 MG VIAL. IVP SCH (11:52)
[2020-08-15] MEDS ORDERED: LISI10TA16 PO (12:37)
[2020-08-15] MEDS ORDERED: ONDANSETRON PF 4 MG/2 ML VIAL. IVP PRN (14:00)
[2020-08-15] MEDS ORDERED: ACETAMINOPHEN 325 MG TABLET. PO PRN (14:00)
--- NOTE | 2020-08-15 14:06 | PDOC ---
Provider Note Date of Service: DATE: 08/15/20 TIME: 14:05 Provider Note history and physical dictated # [id number] Justifications for Admission Other Justification KIMI DILLARD MD Aug 15, 2020 14:06
[2020-08-15 15:00] VITALS: BP 156/81
[2020-08-15] MEDS: POTASSIUM CL 20MEQ-0.45% NACL 1,000 ML IV SCH (16:03)
[2020-08-15] MEDS: GABAPENTIN 300 MG CAPSULE. PO SCH ×3 (16:03→21:02)
[2020-08-15] MEDS: LISINOPRIL 10 MG TABLET PO SCH (16:04)
[2020-08-15] MEDS: MORPHINE SULFATE 2 MG/ML VIAL. IV PRN (16:09)
[2020-08-15] MEDS: INSULIN LISPRO 300 UNITS/3 ML VIAL. SQ SCH (17:00)
--- NOTE | 2020-08-15 17:53 | HP ---
ADMIT DATE: 08/15/2020 He is in room 418. HISTORY OF PRESENT ILLNESS: The patient is a 60-year-old white male with history of diabetes mellitus type 2 with peripheral neuropathy, treated with insulin, hypertension and hyperlipidemia, who has a previous history of a cholecystectomy and noted an onset of abdominal pain, nausea, vomiting and diarrhea since 08/12. He has not traveled anywhere and has not taken any recent antibiotics. Denies any black or bloody stools or throwing up any blood or fever. His appetite is decreased. He has been drinking fluids, but has been eating very well. He sought help at the [facility] Emergency Room. His last colonoscopy, he states, was negative about 2 or 3 years ago. He has already received COVID-19 vaccination. 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 He is admitted for further evaluation of his abdominal pain and diarrhea. He actually went to the emergency room at [facility] yesterday, had a CAT scan of abdomen and pelvis done, which did not show any acute abnormality. He was sent home only to return today. ALLERGIES AND INTOLERANCES: None. MEDICATIONS: Gabapentin 600 mg t.i.d., NovoLog insulin 8 units before meals t.i.d., Levemir insulin 15 units at bedtime, levothyroxine 125 mcg every day, lisinopril 10 mg every day, lovastatin 10 mg every evening. PAST MEDICAL HISTORY: Significant for diabetes mellitus type 2, treated with insulin with peripheral neuropathy, hypertension, hyperlipidemia, hypothyroidism. He has had a toe amputation for infected toe in the past. He has also had a cholecystectomy. He has benign prostatic hypertrophy. PAST SURGICAL HISTORY: He had partial amputation of his left second toe in 2019. SOCIAL HISTORY: He quit drinking alcohol about 20 years ago. Does not smoke cigarettes. He did smoke in the past. 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 FAMILY HISTORY: Noncontributory. REVIEW OF SYSTEMS: GENERAL: He denies any fever, chills or sweats. CARDIOVASCULAR: No chest pain. PULMONARY: No cough or shortness of breath. GASTROINTESTINAL: Nausea, vomiting, diarrhea, and abdominal pain. ENDOCRINE: He has diabetes mellitus. SKIN: No rashes. Rest of review of systems reviewed and negative except as stated in history of present illness. PHYSICAL EXAMINATION: VITAL SIGNS: Temperature 98.4 degrees, heart rate is regular at 62, respiratory rate 18, blood pressure 149/79, oxygen saturation 100% on room air. HEENT: Eyes: Gaze is conjugate. MOUTH: Tongue is midline. NECK: No cervical lymphadenopathy or thyroid enlargement. HEART: Reveals an S1, S2. There is no S3 or murmur. LUNGS: Clear. ABDOMEN: Soft, not distended. Bowel sounds positive with no hepatosplenomegaly or masses. He has got tenderness in the epigastric area. Before his hospitalization, he was complaining of periumbilical abdominal pain. LOWER EXTREMITIES: Without edema. SKIN: No rashes. NEUROLOGIC: No focal weakness of extremities or facial asymmetry. LABORATORY DATA: White count was high at 15.2, hemoglobin 14.5, platelet count 257,000, 73 polys and 70 lymphocytes. Sodium 140, potassium 3.5, chloride 100, total CO2 is 23 with a BUN of 29, creatinine 1.3 and his blood sugar was 191. Liver function tests were okay except for an SGOT of 79. Troponin levels less than 0.017. Lipase was 461. Amylase was 125, fingerstick blood sugar 165 at noon. He had a chest x-ray done, which showed no acute abnormality. X-ray of the abdomen showed increased small bowel gas, which could be related to enteritis and stool was seen throughout the colon. Then, he had a CAT scan of the abdomen and pelvis was done yesterday showed no acute abnormality. He had a calcified granuloma in the right lobe of the liver. He had a cholecystectomy. Spleen was unremarkable. He had a atrophy of the pancreas with some fat infiltration. He had some distal esophageal wall thickening, which could be related to reflux esophagitis. I do not see his electrocardiogram. Apparently it was ordered, but I do not see the report on the chart. ASSESSMENT: 1. Nausea, vomiting, diarrhea and periumbilical abdominal pain with epigastric tenderness for the last 4 days. Possible acute gastroenteritis. His amylase and lipase were just slightly elevated. CAT scan of the abdomen and pelvis yesterday showed no evidence of pancreatitis per CAT scan. 2. Abdominal pain, probably related to gastroenteritis. 3. Diabetes mellitus type 2 with peripheral neuropathy, on insulin. 4. Hypertension. 5. Hyperlipidemia. 6. Hypothyroidism. 7. Leukocytosis. 8. Thickening of the distal esophagus on CAT scan. PLAN: At this point admit to the hospital, consult Dr. Hoyt. GI has already seen the patient. IV Protonix has been ordered. I will start him on clear liquids, start him on IV fluids. Repeat a CBC, BMP and amylase and lipase tomorrow. We will order some morphine 2 mg IV every 4 hours p.r.n. for abdominal pain. Put him on a lower dose of Lantus 10 units at bedtime instead of 15 and put him on an insulin sliding scale before meals t.i.d. Resume his other home medications. Zofran has been ordered 4 mg IV every 6 hours p.r.n. for nausea and vomiting. Repeat his labs again tomorrow. He had an EKG ordered but I just cannot see the report on the chart. He will advance his diet as tolerated. Monitor his blood sugars with insulin sliding scale and continue lower dose of Lantus at bedtime. At some point as an outpatient, he can have an EGD to evaluate of thickening of his distal esophagus. TANYA/NORRIS/EMMANUEL DR: Pual TID: [id number]
[2020-08-15 19:00] VITALS: BP 137/75
[2020-08-15] MEDS: ATORVASTATIN CALCIUM 10 MG TABLET. PO SCH ×2 (21:00→21:02)
[2020-08-15] MEDS ORDERED: INSULIN GLARGINE SYRINGE. SQ SCH (21:00)
[2020-08-15 23:00] VITALS: BP 134/74
[2020-08-16 03:00] VITALS: BP 140/72
[2020-08-16] MEDS: POTASSIUM CL 20MEQ-0.45% NACL 1,000 ML IV SCH ×2 (03:23→18:28)
[2020-08-16] MEDS: MORPHINE SULFATE 2 MG/ML VIAL. IV PRN (03:28)
[2020-08-16] MEDS: LEVOTHYROXINE 125 MCG TABLET PO SCH (06:06)
[2020-08-16 07:00] VITALS: BP 134/65
[2020-08-16 07:05] LABS: BASO % 0 % (0-3); EOS # 0.1 x10^3/uL (0.0-0.7); EOS % 1 % (0-3); HEMATOCRIT 37.6 % (39.0-53.0); HEMOGLOBIN 13.2 g/dL (13.0-17.5); LYMPH # 2.4 x10^3/uL (1.0-4.8); LYMPH % 25 % (24-48); MEAN CORPUSCULAR HEMOGLOBIN 33 pg (25-35); MEAN CORPUSCULAR HGB CONC 35 g/dL (31-37); MEAN CORPUSCULAR VOLUME 94 fL (79-100); MONO # 1.1 x10^3/uL (0.0-1.1); MONO % 11 % (0-9); NEUT # 5.9 x10^3/uL (1.8-7.7); NEUT % 62 % (31-73); PLATELET COUNT 200 x10^3/uL (140-400); RED CELL DISTRIBUTION WIDTH 13.1 % (11.5-14.5); WHITE BLOOD COUNT 9.4 x10^3/uL (4.0-11.0)
[2020-08-16 07:16] LABS: ALBUMIN 3.5 g/dL (3.4-5.0); DIRECT BILIRUBIN 0.2 mg/dL (0.0-0.2); TOTAL BILIRUBIN 0.5 mg/dL (0.2-1.0); TOTAL PROTEIN 5.7 g/dL (6.4-8.2)
[2020-08-16 07:18] LABS: CALCIUM 7.9 mg/dL (8.5-10.1); CREATININE 1.2 mg/dL (0.7-1.3); GFR 62.2; POTASSIUM 4.1 mmol/L (3.5-5.1)
[2020-08-16 07:22] LABS: AMYLASE 77 U/L (25-115); LIPASE 202 U/L (73-393)
[2020-08-16] MEDS: PANTOPRAZOLE IV PUSH 40 MG VIAL. IVP SCH (07:34)
[2020-08-16] MEDS: INSULIN LISPRO 300 UNITS/3 ML VIAL. SQ SCH ×3 (08:00→17:00)
[2020-08-16] MEDS: LISINOPRIL 10 MG TABLET PO SCH (08:48)
[2020-08-16] MEDS: GABAPENTIN 300 MG CAPSULE. PO SCH ×3 (08:48→20:34)
--- NOTE | 2020-08-16 10:21 | NUR ---
SW following. Discussed with RN, pt from home alone, room air, clear liquid diet. GI following. RN advised no SW needs at this time. SW will continue to follow.
--- NOTE | 2020-08-16 10:49 | PDOC ---
PROGRESS NOTES Date of Service DATE: 08/16/20 TIME: 10:46 Subjective Subjective feels better. less nausea. no vomiting. had a few loose stools. no abdominal pain. amylase and lipase are okay. blood sugars and bp and lab reviewed. Objective Objective Vital Signs Date Time Temp Pulse Resp B/P (MAP) Pulse Ox O2 Delivery O2 Flow Rate FiO2 08/16/20 08:48 58 134/65 08/16/20 07:00 98.5 18 97 Room Air 98.5 Intake and Output 08/16/20 07:00 Intake Total 2240 ml Balance 2240 ml Intake Oral 240 ml IV Total 2000 ml # Voids 4 Physical Exam Abdomen: Normal bowel sounds, Soft, No tenderness Heart: Regular rate, Normal S1, Normal S2 Extremities: No edema General: Alert HEENT: Atraumatic Lungs: Clear to auscultation Neuro: Normal speech Psych/Mental Status: Mental status NL Skin: No rashes Assessment Assessment Problems1. acute viral gastroenteritis 2. 3. Diabetes mellitus type 2 with peripheral neuropathy, on insulin. 4. Hypertension. 5. Hyperlipidemia. 6. Hypothyroidism. 7. Leukocytosis.resolved 8. Thickening of the distal esophagus on CAT scan. Medical Problems: (1) Abdominal pain Status: Acute (2) Acute pancreatitis Status: Acute Plan Plan of Care advance to full liquids decrease iv fluids continue iv protonix continue iv prn zofran lab tomorrow advance to solid food tomorrow possible dismissal tomorrow Comment Review of Relevant I have reviewed the following items isabela (where applicable) has been applied. Labs Laboratory Tests Test 08/15/20 09:20 08/15/20 12:01 08/15/20 16:40 08/15/20 20:46 White Blood Count 15.2 x10^3/uL (4.0-11.0) Red Blood Count 4.41 x10^6/uL (4.30-5.70) Hemoglobin 14.5 g/dL (13.0-17.5) Hematocrit 40.9 % (39.0-53.0) Mean Corpuscular Volume 93 fL (79-100) Mean Corpuscular Hemoglobin 33 pg (25-35) Mean Corpuscular Hemoglobin Concent 35 g/dL (31-37) Red Cell Distribution Width 12.8 % (11.5-14.5) Platelet Count 257 x10^3/uL (140-400) Neutrophils (%) (Auto) 73 % (31-73) Lymphocytes (%) (Auto) 17 % (24-48) Monocytes (%) (Auto) 10 % (0-9) Eosinophils (%) (Auto) 0 % (0-3) Basophils (%) (Auto) 1 % (0-3) Neutrophils # (Auto) 11.0 x10^3/uL (1.8-7.7) Lymphocytes # (Auto) 2.6 x10^3/uL (1.0-4.8) Monocytes # (Auto) 1.5 x10^3/uL (0.0-1.1) Eosinophils # (Auto) 0.0 x10^3/uL (0.0-0.7) Basophils # (Auto) 0.1 x10^3/uL (0.0-0.2) Sodium Level 140 mmol/L (136-145) Potassium Level 3.5 mmol/L (3.5-5.1) Chloride Level 100 mmol/L (98-107) Carbon Dioxide Level 23 mmol/L (21-32) Anion Gap 17 (6-14) Blood Urea Nitrogen 29 mg/dL (8-26) Creatinine 1.3 mg/dL (0.7-1.3) Estimated GFR (Cockcroft-Gault) 56.7 BUN/Creatinine Ratio 22 (6-20) Glucose Level 191 mg/dL (70-99) Calcium Level 9.3 mg/dL (8.5-10.1) Total Bilirubin 0.7 mg/dL (0.2-1.0) Aspartate Amino Transf (AST/SGOT) 79 U/L (15-37) Alanine Aminotransferase (ALT/SGPT) 47 U/L (16-63) Alkaline Phosphatase 68 U/L (46-116) Troponin I Quantitative < 0.017 ng/mL (0.000-0.055) Total Protein 7.5 g/dL (6.4-8.2) Albumin 4.5 g/dL (3.4-5.0) Albumin/Globulin Ratio 1.5 (1.0-1.7) Amylase Level 125 U/L (25-115) Lipase 461 U/L (73-393) Glucose (Fingerstick) 165 mg/dL (70-99) 181 mg/dL (70-99) 169 mg/dL (70-99) Test 08/16/20 06:30 08/16/20 08:16 White Blood Count 9.4 x10^3/uL (4.0-11.0) Red Blood Count 4.00 x10^6/uL (4.30-5.70) Hemoglobin 13.2 g/dL (13.0-17.5) Hematocrit 37.6 % (39.0-53.0) Mean Corpuscular Volume 94 fL (79-100) Mean Corpuscular Hemoglobin 33 pg (25-35) Mean Corpuscular Hemoglobin Concent 35 g/dL (31-37) Red Cell Distribution Width 13.1 % (11.5-14.5) Platelet Count 200 x10^3/uL (140-400) Neutrophils (%) (Auto) 62 % (31-73) Lymphocytes (%) (Auto) 25 % (24-48) Monocytes (%) (Auto) 11 % (0-9) Eosinophils (%) (Auto) 1 % (0-3) Basophils (%) (Auto) 0 % (0-3) Neutrophils # (Auto) 5.9 x10^3/uL (1.8-7.7) Lymphocytes # (Auto) 2.4 x10^3/uL (1.0-4.8) Monocytes # (Auto) 1.1 x10^3/uL (0.0-1.1) Eosinophils # (Auto) 0.1 x10^3/uL (0.0-0.7) Basophils # (Auto) 0.0 x10^3/uL (0.0-0.2) Sodium Level 139 mmol/L (136-145) Potassium Level 4.1 mmol/L (3.5-5.1) Chloride Level 105 mmol/L (98-107) Carbon Dioxide Level 27 mmol/L (21-32) Anion Gap 7 (6-14) Blood Urea Nitrogen 21 mg/dL (8-26) Creatinine 1.2 mg/dL (0.7-1.3) Estimated GFR (Cockcroft-Gault) 62.2 Glucose Level 143 mg/dL (70-99) Calcium Level 7.9 mg/dL (8.5-10.1) Total Bilirubin 0.5 mg/dL (0.2-1.0) Direct Bilirubin 0.2 mg/dL (0.0-0.2) Aspartate Amino Transf (AST/SGOT) 46 U/L (15-37) Alanine Aminotransferase (ALT/SGPT) 42 U/L (16-63) Alkaline Phosphatase 52 U/L (46-116) Total Protein 5.7 g/dL (6.4-8.2) Albumin 3.5 g/dL (3.4-5.0) Amylase Level 77 U/L (25-115) Lipase 202 U/L (73-393) Glucose (Fingerstick) 141 mg/dL (70-99) Laboratory Tests Test 08/15/20 12:01 08/15/20 16:40 08/15/20 20:46 08/16/20 06:30 Glucose (Fingerstick) 165 mg/dL (70-99) 181 mg/dL (70-99) 169 mg/dL (70-99) White Blood Count 9.4 x10^3/uL (4.0-11.0) Red Blood Count 4.00 x10^6/uL (4.30-5.70) Hemoglobin 13.2 g/dL (13.0-17.5) Hematocrit 37.6 % (39.0-53.0) Mean Corpuscular Volume 94 fL (79-100) Mean Corpuscular Hemoglobin 33 pg (25-35) Mean Corpuscular Hemoglobin Concent 35 g/dL (31-37) Red Cell Distribution Width 13.1 % (11.5-14.5) Platelet Count 200 x10^3/uL (140-400) Neutrophils (%) (Auto) 62 % (31-73) Lymphocytes (%) (Auto) 25 % (24-48) Monocytes (%) (Auto) 11 % (0-9) Eosinophils (%) (Auto) 1 % (0-3) Basophils (%) (Auto) 0 % (0-3) Neutrophils # (Auto) 5.9 x10^3/uL (1.8-7.7) Lymphocytes # (Auto) 2.4 x10^3/uL (1.0-4.8) Monocytes # (Auto) 1.1 x10^3/uL (0.0-1.1) Eosinophils # (Auto) 0.1 x10^3/uL (0.0-0.7) Basophils # (Auto) 0.0 x10^3/uL (0.0-0.2) Sodium Level 139 mmol/L (136-145) Potassium Level 4.1 mmol/L (3.5-5.1) Chloride Level 105 mmol/L (98-107) Carbon Dioxide Level 27 mmol/L (21-32) Anion Gap 7 (6-14) Blood Urea Nitrogen 21 mg/dL (8-26) Creatinine 1.2 mg/dL (0.7-1.3) Estimated GFR (Cockcroft-Gault) 62.2 Glucose Level 143 mg/dL (70-99) Calcium Level 7.9 mg/dL (8.5-10.1) Total Bilirubin 0.5 mg/dL (0.2-1.0) Direct Bilirubin 0.2 mg/dL (0.0-0.2) Aspartate Amino Transf (AST/SGOT) 46 U/L (15-37) Alanine Aminotransferase (ALT/SGPT) 42 U/L (16-63) Alkaline Phosphatase 52 U/L (46-116) Total Protein 5.7 g/dL (6.4-8.2) Albumin 3.5 g/dL (3.4-5.0) Amylase Level 77 U/L (25-115) Lipase 202 U/L (73-393) Test 08/16/20 08:16 Glucose (Fingerstick) 141 mg/dL (70-99) Medications Current Medications Morphine Sulfate (Morphine Sulfate) 4 mg 1X ONCE IV Last administered on 08/15/20at 09:30; Start 08/15/20 at 09:30; Stop 08/15/20 at 09:31; Status DC Ondansetron HCl (Zofran) 4 mg 1X ONCE IVP Last administered on 08/15/20at 09:30; Start 08/15/20 at 09:30; Stop 08/15/20 at 09:31; Status DC Sodium Chloride 1,000 ml @ 1,000 mls/hr 1X ONCE IV Last administered on 08/15/20at 10:18; Start 08/15/20 at 10:15; Stop 08/15/20 at 11:14; Status DC Ondansetron HCl (Zofran) 4 mg PRN Q8HRS PRN IV NAUSEA/VOMITING; Start 08/15/20 at 10:45; Stop 08/16/20 at 10:44 Morphine Sulfate (Morphine Sulfate) 4 mg PRN Q2HR PRN IV PAIN; Start 08/15/20 at 10:45; Stop 08/16/20 at 10:44 Potassium Chloride/Dextrose/ Sod Cl 1,000 ml @ 80 mls/hr [id number] IV Last administered on 08/15/20at 11:54; Start 08/15/20 at 11:30; Stop 08/15/20 at 13:55; Status DC Pantoprazole Sodium (PROTONIX VIAL for IV PUSH) 40 mg DAILYAC IVP Last administered on 08/16/20at 07:34; Start 08/15/20 at 11:45 Ondansetron HCl (Zofran) 4 mg PRN Q6HRS PRN IVP NAUSEA/VOMITING Last administered on 08/16/20at 07:34; Start 08/15/20 at 14:00 Morphine Sulfate (Morphine Sulfate) 2 mg PRN Q4HRS PRN IV PAIN Last administered on 08/16/20at 03:28; Start 08/15/20 at 14:00 Potassium Chloride/Sodium Chloride 1,000 ml @ 75 mls/hr [id number] IV Last administered on 08/16/20at 03:23; Start 08/15/20 at 14:00 Lisinopril (Prinivil) 10 mg DAILY PO Last administered on 08/16/20at 08:48; Start 08/15/20 at 15:00 Levothyroxine Sodium (Synthroid) 125 mcg DAILY06 PO Last administered on 08/16/20at 06:06; Start 08/16/20 at 06:00 Atorvastatin Calcium (Lipitor) 10 mg QHS PO ; Start 08/15/20 at 21:00 Insulin Glargine (Lantus Syringe) 10 unit QHS SQ Last administered on 08/15/20at 21:05; Start 08/15/20 at 21:00 Insulin Human Lispro (HumaLOG) 0-6 UNITS BG 300-399... TIDWMEALS SQ ; Start 08/15/20 at 17:00 Acetaminophen (Tylenol) 650 mg PRN Q6HRS PRN PO MILD PAIN / TEMP > 100.3'F; Start 08/15/20 at 14:00 Gabapentin (Neurontin) 600 mg TID PO Last administered on 08/16/20at 08:48; Start 08/15/20 at 15:00 Active Scripts Active Zofran (Ondansetron Hcl) 4 Mg Tablet 1 Tab PO PRN Q6-8HRS Reported Lisinopril 10 Mg Tablet 1 Tab PO DAILY Lovastatin 10 Mg Tablet 10 Mg PO HS Levothyroxine Sodium 125 Mcg Tablet 125 Mcg PO DAILYAC Gabapentin (Gabapentin) 300 Mg Capsule 600 Mg PO TID Levemir (Insulin Detemir) 100 Unit/1 Ml Vial 15 Unit SQ HS Humalog (Insulin Lispro) 100 Unit/1 Ml Vial 8 Unit SQ TIDBFRMEAL Vitals/I & O Vital Sign - Last 24 Hours 08/15/20 08/15/20 08/15/20 08/15/20 11:15 13:02 14:34 15:00 Temp 98.4 98.1 98.4 98.1 Pulse 62 62 Resp 18 18 B/P (MAP) 149/79 (102) 156/81 (106) Pulse Ox 100 100 98 O2 Delivery Room Air Room Air Room Air Room Air 08/15/20 08/15/20 08/15/20 08/15/20 16:04 16:09 16:39 19:00 Temp 98.5 98.5 Pulse 62 54 Resp 18 B/P (MAP) 149/79 137/75 (95) Pulse Ox 97 O2 Delivery Room Air Room Air Room Air 08/15/20 08/15/20 08/16/20 08/16/20 19:30 23:00 03:00 03:28 Temp 98.7 98.4 98.7 98.4 Pulse 55 62 Resp 18 18 20 B/P (MAP) 134/74 (94) 140/72 (94) Pulse Ox 96 94 O2 Delivery Room Air Room Air Room Air Room Air 08/16/20 08/16/20 08/16/20 03:58 07:00 08:48 Temp 98.5 98.5 Pulse 58 58 Resp 18 18 B/P (MAP) 134/65 (88) 134/65 Pulse Ox 97 O2 Delivery Room Air Room Air Intake and Output 08/15/20 08/15/20 08/16/20 15:00 23:00 07:00 Intake Total 1000 ml 240 ml 1000 ml Balance 1000 ml 240 ml 1000 ml Justifications for Admission Other Justification KIMI DILLARD MD Aug 16, 2020 10:49
[2020-08-16 11:00] VITALS: BP 128/72
--- NOTE | 2020-08-16 12:17 | PDOC ---
Date of Service: DATE: 08/16/20 TIME: 12:14 Subjective: Subjective: Doing better. No n/v. Had some runny stool. Objective: Vital Signs: Vital Signs Date Time Temp Pulse Resp B/P (MAP) Pulse Ox O2 Delivery O2 Flow Rate FiO2 08/16/20 08:48 58 134/65 08/16/20 07:00 98.5 18 97 Room Air 98.5 Labs: Laboratory Tests Test 08/15/20 16:40 08/15/20 20:46 08/16/20 08:16 08/16/20 12:05 Glucose (Fingerstick) 181 mg/dL (70-99) 169 mg/dL (70-99) 141 mg/dL (70-99) 139 mg/dL (70-99) PE: GEN: NAD - appears more comfortable today LUNGS: CTAB HEART: RRR ABD: NABS, S/ND/NT NEURO/PSYCH: A & O 3 A/P: N/v, abd pain, diarrhea - improving Leukocytosis, mildly elevated lipase - resolved Distal esophageal thickening on CT, heartburn DM -- Plans to advance diet and possible DC tomorrow per primary, will follow. PO PPI. Justicifation of Admission Dx: Justifications for Admission: Justification of Admission Dx: Yes JAGDISH TINSLEY Aug 16, 2020 12:17
[2020-08-16 15:00] VITALS: BP 153/76
[2020-08-16 19:00] VITALS: BP 165/69
[2020-08-16] MEDS: ATORVASTATIN CALCIUM 10 MG TABLET. PO SCH (20:34)
[2020-08-16] MEDS ORDERED: INSULIN GLARGINE SYRINGE. SQ SCH (21:00)
[2020-08-16 23:00] VITALS: BP 131/74
[2020-08-17 02:59] VITALS: BP 117/75
[2020-08-17] MEDS: LEVOTHYROXINE 125 MCG TABLET PO SCH (06:01)
[2020-08-17 07:00] VITALS: BP 138/75
[2020-08-17] MEDS ORDERED: PANTOPRAZOLE 40 MG TABLET.DR. PO SCH (07:30)
[2020-08-17] MEDS: INSULIN LISPRO 300 UNITS/3 ML VIAL. SQ SCH (08:00)
[2020-08-17 08:11] LABS: BASO % 0 % (0-3); EOS # 0.2 x10^3/uL (0.0-0.7); EOS % 2 % (0-3); HEMATOCRIT 37.3 % (39.0-53.0); HEMOGLOBIN 13.4 g/dL (13.0-17.5); LYMPH # 2.1 x10^3/uL (1.0-4.8); LYMPH % 23 % (24-48); MEAN CORPUSCULAR HEMOGLOBIN 34 pg (25-35); MEAN CORPUSCULAR HGB CONC 36 g/dL (31-37); MEAN CORPUSCULAR VOLUME 93 fL (79-100); MONO # 1.1 x10^3/uL (0.0-1.1); MONO % 12 % (0-9); NEUT # 5.9 x10^3/uL (1.8-7.7); NEUT % 63 % (31-73); PLATELET COUNT 196 x10^3/uL (140-400); RED BLOOD COUNT 4.01 x10^6/uL (4.30-5.70); RED CELL DISTRIBUTION WIDTH 12.9 % (11.5-14.5); WHITE BLOOD COUNT 9.3 x10^3/uL (4.0-11.0)
[2020-08-17 08:17] LABS: CALCIUM 7.9 mg/dL (8.5-10.1); CREATININE 1.1 mg/dL (0.7-1.3); GFR 68.8; POTASSIUM 3.8 mmol/L (3.5-5.1)
[2020-08-17 08:44] VITALS: BP 138/75
[2020-08-17] MEDS: LISINOPRIL 10 MG TABLET PO SCH (08:44)
[2020-08-17] MEDS: GABAPENTIN 300 MG CAPSULE. PO SCH (08:44)
--- NOTE | 2020-08-17 09:37 | PDOC ---
Date of Service: DATE: 08/17/20 TIME: 09:35 Subjective: Subjective: Feels better. No n/v, abd pain, or diarrhea - in fact, stool was firm this morning. Feels well enough to go home. Objective: Vital Signs: Vital Signs Date Time Temp Pulse Resp B/P (MAP) Pulse Ox O2 Delivery O2 Flow Rate FiO2 08/17/20 08:44 56 138/75 08/17/20 07:00 98.2 18 98 Room Air 98.2 Labs: Laboratory Tests Test 08/16/20 12:05 08/16/20 17:02 08/16/20 20:33 08/17/20 07:55 Glucose (Fingerstick) 139 mg/dL (70-99) 128 mg/dL (70-99) 132 mg/dL (70-99) 123 mg/dL (70-99) PE: GEN: NAD LUNGS: CTAB HEART: RRR ABD: NABS, S/ND/NT NEURO/PSYCH: A & O 3 A/P: N/v, abd pain, diarrhea - resolved - ?viral -- DC per primary. Consider outpt EGD re: distal esophageal wall thickening on CT. Justicifation of Admission Dx: Justifications for Admission: Justification of Admission Dx: Yes JAGDISH TINSLEY Aug 17, 2020 09:37
[2020-08-17] MEDS ORDERED: PANT40TA77 PO (10:06)
[2020-08-17] MEDS ORDERED: INSU100V35 SQ (10:06)
--- NOTE | 2020-08-17 10:07 | DISCH ---
DISCHARGE INSTRUCTIONS Condition on Discharge Condition on Discharge: Stable Activity After Discharge Activity Instructions for Disc: No restrictions, Activity as tolerated, Other, see below Bathing Instructions: Shower-keep dressing dry Lifting Instructions after Dis: No heavy lifting Driving Instructions after Dis: Do not drive Weight Bearing Status after Di: As tolerated, Other, see below Diet after Discharge Diet after Discharge: Diabetic No Calorie Level Wound Incision Care Wound/Incision Care: Keep wound/cast CDI, Keep wound elevated, No wound care needed Contacting the DRDeepti after DC Call your doctor for: If your condition worsens Follow-Up Follow up with: dr. dillard next week Treatment/Equipment after DC Adaptive Equipment Issued: None KIMI DILLARD MD Aug 17, 2020 10:07
--- NOTE | 2020-08-17 10:13 | PDOC ---
Provider Note Date of Service: DATE: 08/17/20 TIME: 10:12 Provider Note discharge summary dictated # [id number] Justifications for Admission Other Justification KIMI DILLARD MD Aug 17, 2020 10:13
--- NOTE | 2020-08-17 10:17 | NUR ---
SW following. Discussed with RN, discharge order for home with self care. RN advised no SW needs.
--- NOTE | 2020-08-17 11:00 | DS ---
DATE OF DISCHARGE: 08/17/2020 REVENUE INTEGRITY ANALYST: Dr. Hoyt. FINAL DIAGNOSES: 1. Acute viral gastroenteritis. 2. Intractable nausea, vomiting, abdominal pain secondary to the acute viral gastroenteritis. 3. Thickening of the distal esophagus on CAT scan, most likely secondary to reflux esophagitis and will need an EGD as an outpatient. The patient is aware of it. 4. Diabetes mellitus type 2 with peripheral neuropathy, on insulin. 5. Hypertension. 6. Hyperlipidemia. 7. Hypothyroidism. 8. Leukocytosis secondary to stress reaction from viral gastroenteritis, resolved. 9. Vasomotor nephropathy secondary to decreased fluid intake and vomiting and diarrhea which resolved with IV hydration. HOSPITAL COURSE: The patient is a 60-year-old white male with a history of diabetes mellitus type 2 with peripheral neuropathy, treated with insulin, hypertension, hyperlipidemia and hypothyroidism with a previous history of a cholecystectomy, noted the onset of abdominal pain, nausea, vomiting and diarrhea since 08/12. He did not travel anywhere. Denied any recent antibiotics. Denies any black or bloody stools. He had been drinking, appetite decreased. He went to the [facility] Emergency Room. His last colonoscopy was 2 or 3 years ago and he said it was unremarkable. 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 In the Emergency Room, a CAT scan of abdomen and pelvis did not show any acute abnormality except for thickening of the distal esophagus. He was started on IV Protonix. He was started on IV Zofran. His amylase and lipase were slightly elevated and then reversed to normal the next day. He did have a previous CAT scan of abdomen and pelvis as mentioned on the day before he was admitted to the hospital and went to the Emergency Room, was sent home and that was unremarkable except for thickening of the distal esophagus. The pancreas was with atrophy, otherwise was unremarkable, so he did not have acute pancreatitis. He was made n.p.o., started on IV fluids. Diet was advanced, eventually clear liquids and then full liquids, which he tolerated well yesterday, he was started on a diabetic diet today. His insulin was decreased to the sliding scale and 15 of Levemir at bedtime which he takes at home. He gets Lantus 15 units at bedtime, so he will take half the dose of insulin, 4 units of NovoLog before meals t.i.d. Blood sugars were okay and then as he starts eating better, his sugars go up and eventually had been reached up to 8 units before meals 3 times a day with his NovoLog insulin at home. He was started on IV Protonix, switched to oral Protonix. He had no further nausea, vomiting, abdominal pain, diarrhea resolved. Stool is formed. He was seen by Dr. Hoyt for GI. So it is anticipated he will be dismissed today to home, make an appointment to see Dr. Lynn in the office next week and will schedule an EGD as an outpatient with Dr. Hoyt. He will be dismissed on Protonix 40 mg p.o. daily, gabapentin 600 mg t.i.d., NovoLog insulin 4 units before meals t.i.d. to be held if blood sugar less 90 before meal. However, if his sugars start increasing as he is eating more, he can eventually increase back to 8 units before meals t.i.d., which was his dose prior to admission and also will be dismissed on Levemir insulin 15 units at bedtime, levothyroxine 125 mcg every day, lisinopril 10 mg every day, lovastatin 10 mg every day. He was encouraged to drink plenty of fluids. VIOLETTA OLVERA: Paul TID: [id number]
[2020-08-17] MEDS ORDERED: INSULIN LISPRO 300 UNITS/3 ML VIAL. SQ SCH (11:30)
--- NOTE | 2020-08-17 14:08 | NUR ---
Patient discharge home today with self care via wheelchair, accompanied by the TANK HOUSE OPERATOR. Patient is stable, IV remove, prescriptions, and discharge paperwork given to patient. Patient verbalized understanding of followup and discharge instruction.
== END 2020-08-17 14:11 | disposition home or self-care (01) | DRG 391 ==
LOC: ER 09:08 → 4 NORTH 10:16 → OBSVTOIN 10:26
PROVIDERS: ADMIT Internal Medicine; ATTEND Internal Medicine
DX: A08.4 Viral intestinal infection, unspecified (principal); N17.0 Acute kidney failure with tubular necrosis; E78.00 Pure hypercholesterolemia, unspecified; E11.42 Type 2 diabetes mellitus with diabetic polyneuropathy; E78.5 Hyperlipidemia, unspecified; N40.0 Benign prostatic hyperplasia without lower urinary tract symptoms; E03.9 Hypothyroidism, unspecified; I12.9 Hypertensive chronic kidney disease with stage 1 through stage 4 chronic kidney disease, or unspecified chronic kidney disease; N18.9 Chronic kidney disease, unspecified; E11.22 Type 2 diabetes mellitus with diabetic chronic kidney disease; K21.00 Gastro-esophageal reflux disease with esophagitis, without bleeding; K57.50 Diverticulosis of both small and large intestine without perforation or abscess without bleeding; Z87.891 Personal history of nicotine dependence; Z90.49 Acquired absence of other specified parts of digestive tract; Z89.429 Acquired absence of other toe(s), unspecified side; Z79.4 Long term (current) use of insulin; Z79.899 Other long term (current) drug therapy
CPT/HCPCS: 36415; 71045; 74021; 80048; 80053; 80076; 82150; 82962; 83690; 84484; 85025; 96374; 96375; C9113; G0379; J1815; J2270; J2405; J3480; J7030; 99285-25; G0378